=== PATIENT | female | born 1945 | race Caucasian/White ===

== ENCOUNTER 2019-12-12 09:57 | Outpatient (REF) | payer MEDICARE, MEDICAID, SELFPAY ==
[2019-12-12 11:00] LABS: MANUAL DIFF FLAG NO
[2019-12-12 11:08] LABS: Basophils Absolute Auto 0.1 X10*3/uL (0.0-0.2); Basophils Percent Auto 0.6 % (0-2); Eosinophils Absolute Auto 0.2 X10*3/uL (0.0-0.4); Eosinophils Percent Auto 1.5 % (0-4); Hematocrit 38.2 % (37-47); Hemoglobin 12.2 g/dl (12.0-16.0); Imm Gran Abs Auto 0.14 X10*3/uL (0.00-0.03); Imm Gran Pct Auto 1.4 % (0.0-0.4); Lymphocytes Absolute Auto 2.3 X10*3/uL (1.2-4.9); Lymphocytes Percent Auto 23.2 % (20-40); Mean Corpuscular HGB Conc 31.9 g/dl (31.0-35.0); Mean Corpuscular Hemoglobin 27.4 pg (27.0-33.0); Mean Corpuscular Volume 85.8 fL (80-98); Monocytes Absolute Auto 0.6 X10*3/uL (0.1-1.2); Monocytes Percent Auto 5.6 % (2-11); Neutrophils Absolute Auto 6.8 X10*3/uL (2.0-8.3); Neutrophils Percent Auto 67.7 % (45-73); Platelet Count 357 X10*3/uL (160-400); Red Blood Count 4.45 X10*6/uL (4.20-5.50); Red Cell Distribution Width 13.1 % (11.0-16.0)
[2019-12-12 11:31] LABS: Estimated Average Glucose 160 mg/dL; Hemoglobin A1c % 7.2 %
[2019-12-12 11:53] LABS: Creatinine Urine 101.58 mg/dL; Microalbum/Creatinine Ratio Ur 67.9 ug/mg cr
[2019-12-12 11:54] LABS: Alanine Aminotransferase 13 U/L (0-31); Albumin Level 4.5 g/dL (3.5-5.0); Alkaline Phosphatase 55 U/L (39-117); Anion Gap 14 (12-20); Aspartate Amino Transferase 15 U/L (5-31); Bilirubin Total 0.3 mg/dL (0.0-1.0); Blood Urea Nitrogen 21 mg/dL (9-16); Calcium 9.5 mg/dL (8.4-10.2); Carbon Dioxide 27 mmol/L (22-29); Chloride 103 mmol/L (96-108); Estimated Glomerular Filt Rate > 60; Glucose Random 154 mg/dL (60-115); Potassium 4.5 mmol/l (3.3-5.1); Sodium 139 mmol/L (135-145); Total Protein 7.4 g/dL (6.5-8.0)
== END 2019-12-12 09:58 | disposition home or self-care (01) ==
LOC: HO.LAB 09:57
PROVIDERS: PCP Internal Medicine; Visit Provider Internal Medicine
DX: E11.9 Type 2 diabetes mellitus without complications (principal); E03.8 Other specified hypothyroidism; E78.00 Pure hypercholesterolemia, unspecified; I10 Essential (primary) hypertension
CPT/HCPCS: 36415; 80053; 82043; 83036; 85025

== ENCOUNTER 2020-03-15 10:19 | Outpatient (REF) | payer MEDICARE, MEDICAID, SELFPAY ==
[2020-03-15 11:10] LABS: Estimated Average Glucose 180 mg/dL; Hemoglobin A1c % 7.9 %
[2020-03-15 11:11] LABS: Alanine Aminotransferase 14 U/L (0-31); Albumin Level 4.5 g/dL (3.5-5.0); Alkaline Phosphatase 57 U/L (39-117); Anion Gap 15 (12-20); Aspartate Amino Transferase 15 U/L (5-31); Bilirubin Total 0.4 mg/dL (0.0-1.0); Blood Urea Nitrogen 24 mg/dL (9-16); Calcium 9.1 mg/dL (8.4-10.2); Carbon Dioxide 27 mmol/L (22-29); Chloride 103 mmol/L (96-108); Cholesterol 180 mg/dL; Estimated Glomerular Filt Rate > 60; Glucose Random 192 mg/dL (60-115); HDL Cholesterol 44 mg/dL; LDL Cholesterol Calculated 109 mg/dl; Potassium 4.3 mmol/l (3.3-5.1); Sodium 141 mmol/L (135-145); Total Protein 7.6 g/dL (6.5-8.0); Triglycerides 139 mg/dL
[2020-03-15 11:32] LABS: Thyroid Stimulating Hormone 1.24 uIU/mL (0.32-4.0)
== END 2020-03-15 10:20 | disposition home or self-care (01) ==
LOC: HO.LAB 10:19
PROVIDERS: PCP Internal Medicine; Visit Provider Internal Medicine
DX: R80.0 Isolated proteinuria (principal); E11.9 Type 2 diabetes mellitus without complications; E03.8 Other specified hypothyroidism; E78.00 Pure hypercholesterolemia, unspecified
CPT/HCPCS: 36415; 80053; 80061; 83036; 84443

== ENCOUNTER 2020-06-14 09:14 | Outpatient (REF) | payer MEDICARE, MEDICAID, SELFPAY ==
[2020-06-14 10:03] LABS: Estimated Average Glucose 169 mg/dL; Hemoglobin A1c % 7.5 %
[2020-06-14 10:24] LABS: Alanine Aminotransferase 13 U/L (0-31); Albumin Level 4.4 g/dL (3.5-5.0); Alkaline Phosphatase 56 U/L (39-117); Anion Gap 12 (12-20); Aspartate Amino Transferase 15 U/L (5-31); Bilirubin Total 0.3 mg/dL (0.0-1.0); Blood Urea Nitrogen 25 mg/dL (9-16); Calcium 9.5 mg/dL (8.4-10.2); Carbon Dioxide 29 mmol/L (22-29); Chloride 103 mmol/L (96-108); Estimated Glomerular Filt Rate > 60; Glucose Random 197 mg/dL (60-115); Potassium 4.6 mmol/L (3.3-5.1); Sodium 139 mmol/L (135-145); Total Protein 7.3 g/dL (6.5-8.0)
== END 2020-06-14 09:15 | disposition home or self-care (01) ==
LOC: HO.LAB 09:14
PROVIDERS: PCP Internal Medicine; Visit Provider Internal Medicine
DX: E03.8 Other specified hypothyroidism (principal); E11.9 Type 2 diabetes mellitus without complications; E78.00 Pure hypercholesterolemia, unspecified
CPT/HCPCS: 36415; 80053; 83036

== ENCOUNTER 2020-09-11 08:49 | Outpatient (REF) | payer MEDICARE, SELFPAY ==
[2020-09-11 10:09] LABS: MANUAL DIFF FLAG NO
[2020-09-11 10:20] LABS: Basophils Absolute Auto 0.1 X10*3/uL (0.0-0.2); Basophils Percent Auto 0.6 % (0-2); Eosinophils Absolute Auto 0.2 X10*3/uL (0.0-0.4); Eosinophils Percent Auto 1.8 % (0-4); Hematocrit 37.7 % (37-47); Hemoglobin 11.9 g/dl (12.0-16.0); Imm Gran Abs Auto 0.14 X10*3/uL (0.00-0.03); Imm Gran Pct Auto 1.4 % (0.0-0.4); Lymphocytes Absolute Auto 2.9 X10*3/uL (1.2-4.9); Lymphocytes Percent Auto 28.6 % (20-40); Mean Corpuscular HGB Conc 31.6 g/dl (31.0-35.0); Mean Corpuscular Hemoglobin 27.2 pg (27.0-33.0); Mean Corpuscular Volume 86.1 fL (80-98); Mean Platelet Volume 10.3 fL (9.4-12.3); Monocytes Absolute Auto 0.6 X10*3/uL (0.1-1.2); Monocytes Percent Auto 5.5 % (2-11); Neutrophils Absolute Auto 6.4 X10*3/uL (2.0-8.3); Neutrophils Percent Auto 62.1 % (45-73); Platelet Count 343 X10*3/uL (160-400); Red Blood Count 4.38 X10*6/uL (4.20-5.50); Red Cell Distribution Width 12.9 % (11.0-16.0); White Blood Count 10.2 X10*3/uL (4.8-10.8)
[2020-09-11 10:29] LABS: Estimated Average Glucose 177 mg/dL; Hemoglobin A1c % 7.8 %
[2020-09-11 10:48] LABS: Microalbum/Creatinine Ratio Ur 63.4 ug/mg cr
[2020-09-11 10:59] LABS: Thyroid Stimulating Hormone 0.78 uIU/mL (0.32-4.0)
[2020-09-11 11:01] LABS: Alanine Aminotransferase 11 U/L (0-31); Albumin Level 4.4 g/dL (3.5-5.0); Alkaline Phosphatase 55 U/L (39-117); Anion Gap 15 (12-20); Aspartate Amino Transferase 15 U/L (5-31); Bilirubin Total 0.5 mg/dL (0.0-1.0); Blood Urea Nitrogen 19 mg/dL (9-16); Calcium 9.4 mg/dL (8.4-10.2); Carbon Dioxide 24 mmol/L (22-29); Chloride 104 mmol/L (96-108); Cholesterol 156 mg/dL; Estimated Glomerular Filt Rate > 60; Glucose Random 158 mg/dL (60-115); HDL Cholesterol 45 mg/dL; LDL Cholesterol Calculated 82 mg/dl; Potassium 4.4 mmol/L (3.3-5.1); Sodium 139 mmol/L (135-145); Total Protein 7.4 g/dL (6.5-8.0); Triglycerides 145 mg/dL
== END 2020-09-11 08:50 | disposition home or self-care (01) ==
LOC: HO.LAB 08:49
PROVIDERS: PCP Internal Medicine; Visit Provider Internal Medicine
DX: E03.9 Hypothyroidism, unspecified (principal); E11.9 Type 2 diabetes mellitus without complications; E78.00 Pure hypercholesterolemia, unspecified; I10 Essential (primary) hypertension
CPT/HCPCS: 36415; 80053; 80061; 82043; 83036; 84443; 85025

== ENCOUNTER 2020-12-27 08:51 | Outpatient (REF) | payer MEDICARE, SELFPAY ==
[2020-12-27 09:24] LABS: Estimated Average Glucose 192 mg/dL; Hemoglobin A1c % 8.3 %
[2020-12-27 09:45] LABS: Alanine Aminotransferase 12 U/L (0-31); Albumin Level 4.4 g/dL (3.5-5.0); Alkaline Phosphatase 55 U/L (39-117); Anion Gap 14 (12-20); Aspartate Amino Transferase 18 U/L (5-31); Bilirubin Total 0.3 mg/dL (0.0-1.0); Blood Urea Nitrogen 22 mg/dL (9-16); Calcium 9.4 mg/dL (8.4-10.2); Carbon Dioxide 24 mmol/L (22-29); Chloride 105 mmol/L (96-108); Estimated Glomerular Filt Rate > 60; Glucose Random 193 mg/dL (60-115); Potassium 4.4 mmol/L (3.3-5.1); Sodium 139 mmol/L (135-145); Total Protein 7.3 g/dL (6.5-8.0)
== END 2020-12-27 08:52 | disposition home or self-care (01) ==
LOC: HO.LAB 08:51
PROVIDERS: PCP Internal Medicine; Visit Provider Internal Medicine
DX: Z00.01 Encounter for general adult medical examination with abnormal findings (principal); E03.9 Hypothyroidism, unspecified; E11.9 Type 2 diabetes mellitus without complications; E78.00 Pure hypercholesterolemia, unspecified; I10 Essential (primary) hypertension
CPT/HCPCS: 36415; 80053; 83036

== ENCOUNTER 2021-03-29 08:58 | Outpatient (REF) | payer MEDICARE, SELFPAY ==
[2021-03-29 09:56] LABS: Estimated Average Glucose 157 mg/dL; Hemoglobin A1c % 7.1 %
[2021-03-29 10:12] LABS: Alanine Aminotransferase 11 U/L (0-31); Albumin Level 4.3 g/dL (3.5-5.0); Alkaline Phosphatase 53 U/L (39-117); Anion Gap 15 (12-20); Aspartate Amino Transferase 15 U/L (5-31); Bilirubin Total < 0.2 mg/dL (0.0-1.0); Blood Urea Nitrogen 29 mg/dL (9-16); Calcium 9.7 mg/dL (8.4-10.2); Carbon Dioxide 27 mmol/L (22-29); Chloride 104 mmol/L (96-108); Estimated Glomerular Filt Rate > 60; Glucose Random 178 mg/dL (60-115); Potassium 4.6 mmol/L (3.3-5.1); Sodium 141 mmol/L (135-145); Total Protein 7.4 g/dL (6.5-8.0)
[2021-03-29 10:28] LABS: Thyroid Stimulating Hormone 1.04 uIU/mL (0.32-4.0)
== END 2021-03-29 08:59 | disposition home or self-care (01) ==
LOC: HO.LAB 08:58
PROVIDERS: PCP Internal Medicine; Visit Provider Internal Medicine
DX: E03.9 Hypothyroidism, unspecified (principal); E11.9 Type 2 diabetes mellitus without complications; E78.00 Pure hypercholesterolemia, unspecified; I10 Essential (primary) hypertension
CPT/HCPCS: 36415; 80053; 83036; 84443

== ENCOUNTER → 2021-07-23 09:33 | Outpatient (BNVA) | payer OTHER, SELFPAY | PROVIDERS: PCP Internal Medicine; Visit Provider Internal Medicine Pulmonary Disease | DX: J45.909 Unspecified asthma, uncomplicated (principal) | CPT/HCPCS: 99202 ==

== ENCOUNTER 2021-07-31 10:42 | Outpatient (REF) | payer OTHER, SELFPAY ==
--- NOTE | ~2021-07-31 | MM_ITS ---
EXAMINATION: BONE DENSITOMETRY CLINICAL INDICATION: Menopause. COMPARISON: Previous BD dated 06/13/2014 and baseline BD dated 05/28/2006. TECHNIQUE: Using a [employer] DXA System (software version: 13.1) manufactured by [employer], dual-energy x-ray absorptiometry was performed of the lumbar spine and left hip. The images are of good technical quality. Summary results are attached. FINDINGS: AP SPINE L1-L4: Current: BMD 0.925 g/cm2, Z-score -0.4, T-score -2.1, osteopenia, 4.8% increase from previous, 13.4% increase from baseline (<5% change is not significant). Prior: BMD 0.883 g/cm2. Baseline: BMD 0.816 g/cm2. LEFT FEMUR, NECK: Current: BMD 0.886 g/cm2, Z-score 0.8, T-score -1.1, osteopenia. Prior: BMD 0.905 g/cm2. Baseline: BMD 0.830 g/cm2. LEFT FEMUR, TOTAL: Current: BMD 1.007 g/cm2, Z-score 1.7, T-score 0.0, normal, 5.5% decrease from previous, 0.2% decrease from baseline (<5% change is not significant). Prior: BMD 1.066 g/cm2. Baseline: BMD 1.009 g/cm2. IDENTIFIED RISK FACTORS: Early menopause, height loss, hysterectomy, osteoporosis, secondary osteoporosis. HISTORY OF FRACTURE: None listed. MEDICATIONS: Calcium, vitamin D. MM/XR DEXA axial skeleton IMPRESSION: 1. DIAGNOSIS: Osteopenia based on the lowest T-score value of -2.1 in the lumbar spine applying World Health Organization criteria. 2. 10-YEAR FRACTURE RISK PREDICTION, FRAX: Major osteoporotic fracture (clinical spine, forearm, hip or shoulder) 5.4%. Hip fracture 0.8%. 3. Treatment Recommendations: NOF guidelines recommend consideration for treatment in postmenopausal women and men age 50 and older presenting with the following: -A hip or vertebral (clinical or morphometric) fracture. -T-score less than or equal to -2.5 at the femoral neck or spine after appropriate evaluation to exclude secondary causes. -Low bone mass at the hip or spine and a 10-year fracture probability by FRAX of greater than or equal to 3% for hip fracture or greater than or equal to 20% for major osteoporotic fracture based on the [place] adapted WHO algorithm. 4. Other Recommendations: All treatment decisions require clinical judgment and consideration of individual patient factors, including patient preferences, comorbidities, previous drug use, risk factors not captured in the FRAX model (e.g. frailty, falls, vitamin D deficiency, increased bone turnover, interval significant decline in bone density) and possible under or overestimation of fracture risk by FRAX. Additional medical evaluation for secondary cause of low bone mineral density may be appropriate. FUTURE SCAN RECOMMENDATION: People with diagnosed cases of osteoporosis or at high risk for fracture should have regular bone mineral density tests. For patients eligible for Medicare, routine testing is allowed once every 2 years. The testing frequency can be increased to one year for patients who have rapidly progressing disease, those who are receiving or discontinuing medical therapy to restore bone mass, or have additional risk factors.
--- NOTE | ~2021-07-31 | MM_ITS ---
EXAMINATION: MM SCREENING DIGITAL BREAST TOMOSYNTHESIS, BILATERAL CLINICAL INFORMATION: Screening. Asymptomatic. The lifetime risk of breast cancer based on the Tyrer-Cuzick Model is 2%. COMPARISON: Mammography: 07/26/2018, 05/18/2017, 03/17/2016 TECHNIQUE: Digital breast tomosynthesis is performed in both the craniocaudal and mediolateral oblique views along with computer-aided detection (CAD). Synthesized 2D images are generated from the tomosynthesis. FINDINGS: The breasts are almost entirely fatty (ACR BI-RADS breast composition Category a). There are no significant masses, abnormal calcifications, or other abnormalities. Background stromal markings are stable. No developing density. The axilla are unremarkable. No significant changes. MM/MM tomosynthesis screening BI IMPRESSION: No mammographic evidence of malignancy. ASSESSMENT: BI-RADS 1: Negative RECOMMENDATION: Routine annual mammography screening. This patient's information was entered into a reminder system with a target due date for their next mammogram.
== END 2021-07-31 10:43 | disposition home or self-care (01) ==
LOC: HO.MAMMO 10:42
PROVIDERS: PCP Internal Medicine; Visit Provider Internal Medicine
DX: Z12.31 Encounter for screening mammogram for malignant neoplasm of breast (principal); Z13.820 Encounter for screening for osteoporosis; Z78.0 Asymptomatic menopausal state; M85.80 Other specified disorders of bone density and structure, unspecified site
CPT/HCPCS: 77063; 77067; 77080

== ENCOUNTER 2021-10-17 08:58 | Outpatient (REF) | payer OTHER, SELFPAY ==
[2021-10-17 10:08] LABS: Alanine Aminotransferase 9 U/L (0-31); Albumin Level 4.4 g/dL (3.5-5.0); Alkaline Phosphatase 62 U/L (39-117); Anion Gap 16 (12-20); Aspartate Amino Transferase 15 U/L (5-31); Bilirubin Total 0.2 mg/dL (0.0-1.0); Blood Urea Nitrogen 20 mg/dL (9-16); Calcium 9.4 mg/dL (8.4-10.2); Carbon Dioxide 25 mmol/L (22-29); Chloride 105 mmol/L (96-108); Cholesterol 184 mg/dL; Estimated Glomerular Filt Rate > 60; Glucose Fasting 156 mg/dL (60-99); HDL Cholesterol 42 mg/dL; LDL Cholesterol Calculated 105 mg/dl; Potassium 4.7 mmol/L (3.3-5.1); Sodium 141 mmol/L (135-145); Total Protein 7.3 g/dL (6.5-8.0); Triglycerides 186 mg/dL
[2021-10-17 10:32] LABS: Free T4 (Free Thyroxine) 1.32 ng/dL (0.71-1.85); Thyroid Stimulating Hormone 0.83 uIU/mL (0.32-4.0); Vitamin D 25-OH Total 27.1 ng/mL (>30)
[2021-10-17 11:12] LABS: Microalbum/Creatinine Ratio Ur 101.1 ug/mg cr
[2021-10-19 06:26] LABS: Thyroglobulin Antibodies <1 IU/mL (< or = 1); Thyroid Peroxidase Antibodies 1 IU/mL (<9)
== END 2021-10-17 08:59 | disposition home or self-care (01) ==
LOC: HO.LAB 08:58
PROVIDERS: PCP Internal Medicine; Visit Provider Internal Medicine
DX: E11.9 Type 2 diabetes mellitus without complications (principal); R80.9 Proteinuria, unspecified; E03.9 Hypothyroidism, unspecified; E78.00 Pure hypercholesterolemia, unspecified; E78.5 Hyperlipidemia, unspecified; E55.9 Vitamin D deficiency, unspecified
CPT/HCPCS: 36415; 80053; 80061; 82043; 82306; 84439; 84443; 86376; 86800

== ENCOUNTER 2021-11-20 09:55 | Outpatient (REF) | payer OTHER, SELFPAY ==
--- NOTE | 2021-11-20 10:54 | PFT_ITS ---
Forced vital capacity 74% and FEV1 also 74%, FEV1/FVC ratio 74. [id number] is 65% and MVV 66%. Post bronchodilator therapy, there is no significant change. Total lung capacity 81%. Residual volume 85%. Diffusion capacity 96%. CONCLUSION: Possible mild obstructive airway disorder involving the smaller airways. Clinical correlation is recommended. MD EDILBERTO Calvo/MILEY / [id number]
== END 2021-11-20 09:56 | disposition home or self-care (01) ==
LOC: HO.RESP 09:55
PROVIDERS: PCP Internal Medicine; Visit Provider Internal Medicine Pulmonary Disease
DX: J45.40 Moderate persistent asthma, uncomplicated (principal)
CPT/HCPCS: 94060; 94727; 94729; 99212

== ENCOUNTER → 2022-04-21 13:29 | Outpatient (BNVA) | payer OTHER, SELFPAY | PROVIDERS: PCP Internal Medicine; Referring Provider Internal Medicine; Visit Provider Nurse Practitioner Family | DX: Z12.11 Encounter for screening for malignant neoplasm of colon (principal); R19.5 Other fecal abnormalities | CPT/HCPCS: 99202 ==

== ENCOUNTER → 2022-05-15 09:47 | Outpatient (BNVA) | payer OTHER, SELFPAY | PROVIDERS: PCP Internal Medicine; Visit Provider Internal Medicine Pulmonary Disease | DX: J45.40 Moderate persistent asthma, uncomplicated (principal); Z79.899 Other long term (current) drug therapy | CPT/HCPCS: 99212 ==

== ENCOUNTER 2022-06-27 09:39 | Outpatient (REF) | payer OTHER, SELFPAY ==
[2022-06-27 11:42] LABS: Alanine Aminotransferase 12 U/L (0-31); Albumin Level 4.3 g/dL (3.5-5.0); Alkaline Phosphatase 61 U/L (39-117); Anion Gap 14 (12-20); Aspartate Amino Transferase 16 U/L (5-31); Bilirubin Total 0.3 mg/dL (0.0-1.0); Blood Urea Nitrogen 25 mg/dL (9-16); Calcium 9.3 mg/dL (8.4-10.2); Carbon Dioxide 26 mmol/L (22-29); Chloride 106 mmol/L (96-108); Cholesterol 194 mg/dL; Estimated Glomerular Filt Rate > 60; Glucose Fasting 207 mg/dL (60-99); HDL Cholesterol 42 mg/dL; LDL Cholesterol Calculated 116 mg/dl; Potassium 4.7 mmol/L (3.3-5.1); Sodium 141 mmol/L (135-145); Total Protein 6.9 g/dL (6.5-8.0); Triglycerides 183 mg/dL
[2022-06-27 11:58] LABS: Thyroid Stimulating Hormone 1.85 uIU/mL (0.32-4.0); Vitamin D 25-OH Total 29.5 ng/mL (>30)
[2022-06-27 13:16] LABS: Microalbum/Creatinine Ratio Ur 121.5 ug/mg cr
== END 2022-06-27 09:40 | disposition home or self-care (01) ==
LOC: HO.LAB 09:39
PROVIDERS: PCP Internal Medicine; Visit Provider Internal Medicine
DX: E55.9 Vitamin D deficiency, unspecified (principal); E03.9 Hypothyroidism, unspecified; E11.9 Type 2 diabetes mellitus without complications; E78.5 Hyperlipidemia, unspecified
CPT/HCPCS: 36415; 80053; 80061; 82043; 82306; 84443

== ENCOUNTER 2022-08-28 08:47 | Outpatient (REF) | payer OTHER, SELFPAY ==
--- NOTE | ~2022-08-28 | MM_ITS ---
EXAMINATION: MM SCREENING DIGITAL BREAST TOMOSYNTHESIS, BILATERAL CLINICAL INFORMATION: Screening. Asymptomatic. The lifetime risk of breast cancer based on the Tyrer-Cuzick Model is 2%. COMPARISON: Mammography: 07/31/2021, 07/26/2018, 05/18/2017 TECHNIQUE: Digital breast tomosynthesis is performed in both the craniocaudal and mediolateral oblique views along with computer-aided detection (CAD). Synthesized 2D images are generated from the tomosynthesis. FINDINGS: The breasts are almost entirely fatty (ACR BI-RADS breast composition Category a). Background stromal markings are normal and there is no developing density or architectural abnormality. There are no significant masses, abnormal calcifications, or other abnormalities. The axilla and skin contours are unremarkable. No significant changes from prior studies. MM/MM tomosynthesis screening BI IMPRESSION: No mammographic evidence of malignancy. ASSESSMENT: BI-RADS 1: Negative RECOMMENDATION: Routine annual mammography screening. This patient's information was entered into a reminder system with a target due date for their next mammogram.
== END 2022-08-28 08:48 | disposition home or self-care (01) ==
LOC: HO.MAMMO 08:47
PROVIDERS: PCP Internal Medicine; Visit Provider Internal Medicine
DX: Z12.31 Encounter for screening mammogram for malignant neoplasm of breast (principal)
CPT/HCPCS: 77063; 77067

== ENCOUNTER 2022-10-30 08:34 | Outpatient (REF) | payer OTHER, SELFPAY ==
[2022-10-30 10:55] LABS: Alanine Aminotransferase 10 U/L (0-31); Albumin Level 4.2 g/dL (3.5-5.0); Alkaline Phosphatase 46 U/L (39-117); Anion Gap 13 (12-20); Aspartate Amino Transferase 16 U/L (5-31); Bilirubin Total 0.2 mg/dL (0.0-1.0); Blood Urea Nitrogen 26 mg/dL (9-16); Calcium 9.5 mg/dL (8.4-10.2); Carbon Dioxide 26 mmol/L (22-29); Chloride 106 mmol/L (96-108); Cholesterol 123 mg/dL (<200); Estimated Glomerular Filt Rate 57; Glucose Fasting 108 mg/dL (60-99); HDL Cholesterol 39 mg/dL (>40); LDL Cholesterol Calculated 56 mg/dL (<100); Potassium 4.1 mmol/L (3.3-5.1); Sodium 141 mmol/L (135-145); Total Protein 7.4 g/dL (6.5-8.0); Triglycerides 140 mg/dL (<150)
[2022-10-30 10:57] LABS: Thyroid Stimulating Hormone 1.22 uIU/mL (0.32-4.0); Vitamin D 25-OH Total 29.2 ng/mL (>30)
[2022-10-30 11:39] LABS: Creatinine Urine 183.64 mg/dL; Microalbum/Creatinine Ratio Ur 40.2 ug/mg cr (<30)
== END 2022-10-30 08:35 | disposition home or self-care (01) ==
LOC: HO.LAB 08:34
PROVIDERS: PCP Internal Medicine; Visit Provider Internal Medicine
DX: E55.9 Vitamin D deficiency, unspecified (principal); E03.9 Hypothyroidism, unspecified; E11.9 Type 2 diabetes mellitus without complications; E78.5 Hyperlipidemia, unspecified
CPT/HCPCS: 36415; 80053; 80061; 82043; 82306; 84443

== ENCOUNTER 2022-11-04 08:46 | Outpatient (AMB) | payer OTHER, SELFPAY ==
--- NOTE | 2022-11-04 09:01 | A.OFFPC_ITS ---
Vital Signs 11/04/22 09:03 Height 4 ft 9 in Weight 147 lb BMI 31.8 BP 130/68 Blood Pressure Location Lt brachial Position Sitting Intake Visit Reasons: dm Intake Note: Patient here for a follow up DM Photograph Editor Required: No Accompanied by: Self / Same As Patient Allergies No Known Allergies [No Known Allergies*] Allergy (Verified 11/04/22 09:26) Medication List - Last Reconciled 11/04/22 by Silvia Hernadez MD acetaminophen 500 mg PO TID PRN 30 days albuterol sulfate 90 mcg/actuation 2 puffs PO QID PRN aspirin 81 mg PO DAILY 90 days blood sugar diagnostic (FreeStyle Lite Strips) As directed blood-glucose meter (FreeStyle Lite Meter kit) As directed calcium carbonate-vitamin D3 600 mg-5 mcg (200 unit) (Calcium 600 + D(3)) 1 tab PO BID 90 days docusate sodium 100 mg PO BEDTIME fluticasone furoate 200 mcg/actuation (Arnuity Ellipta) 1 inh inhalation DAILY glipizide ER 10 mg PO DAILY 90 days lancets (FreeStyle Lancets) As directed levothyroxine 75 mcg PO DAILY 90 days lisinopril-hydrochlorothiazide 20-25 mg 1 tab PO DAILY 90 days metformin 1,000 mg PO BID 90 days simvastatin 40 mg PO BEDTIME 90 days Tobacco use date assessed: 07/03/22 Fall risk assessment: No Falls in past year Last assessed Fall Risk: 11/04/22 Dental Screening Dental Screen Date: 11/04/22 Did you have a dental visit in the last 12 months?: No Did you have a dental problem in the last 6 months where you did not have access to dental care?: No Was dental information given to patient?: Patient has dentist HPI HPI Comments History of Present Illness Details This is a 77-year-old female with diabetes mellitus type 2, hypothyroidism, hypertension and pure hypercholesterolemia that comes today for follow-up on her conditions. A1c slightly elevated and I will add Tradjenta. TSH normal. Blood pressure within goal. LDL within goal. No chest pain or shortness of breath. Compliant with medications. Had positive Cologuard and was evaluated by Gastroenterology which said that she can wait for colonoscopy. [facility] Medical History Class 1 obesity with body mass index (BMI) of 31.0 to 31.9 in adult Diabetes mellitus Essential hypertension Hypothyroidism Microalbuminuria Moderate persistent asthma Postmenopausal Pure hypercholesterolemia Surgical History H/O colonoscopy No pertinent past surgical history Family History Mother No problems noted. Father No problems noted. Social History Housing: House Alcohol intake: never Patient Tobacco Use Status: Former Tobacco user Tobacco use type: Cigarette e-Cigarette/Vaping Use: Never Used Second Hand Smoke Exposure: No service: No Current occupational status: disabled Cognitive needs: No Hearing needs: No Vision needs: Yes Questionnaire Thrive Questionnaire Date Thrive assessed: 07/03/22 CHALRES-7 AMB Questionnaire CHARLES-7 Date CHARLES - 7 assessed: 07/03/22 Source: Developed by Drs. Jem Cervantes, Aga Najera, Steven Johntson and colleagues, with an educational rojelio from [employer]. Review of Systems Const All systems reviewed & are unremarkable except as noted in HPI and below Eyes Reports no additional complaints, Denies change in vision and Denies other visual disturbances Card Denies chest pain at rest, Denies chest pain with activity, Denies edema, Denies irregular heart rhythm, Denies claudication, Denies dyspnea, Denies dyspnea on exertion, Denies orthopnea, Denies paroxysmal nocturnal dyspnea and Denies slow heart rate Resp Denies cough, Denies dyspnea and Denies dyspnea on exertion GI Denies abdominal pain, Denies change in bowel habits, Denies excessive flatus, Denies nausea and Denies vomiting Denies urinary incontinence, Denies urinary hesitancy and Denies urinary urgency Musc Denies abnormal gait, Denies atrophy, Denies deformity and Denies limited range of motion Skin/Breast Denies bleeding lesions, Denies changing lesions and Denies rash Neuro Denies abnormal gait and Denies lack of coordination Physical exam (Primary Care) Vital Signs: Last Vital Signs BP 130/68 11/04/22 09:03 BMI result Body Mass Index 31.8 Tobacco/Smoking Status: Tobacco use Status Tobacco use date assessed 07/03/22 11/04/22 09:04 Patient Tobacco Use Status Former Tobacco user 11/04/22 09:04 Tobacco use type Cigarette 11/04/22 09:04 e-Cigarette/Vaping Use Never Used 11/04/22 09:04 Thrive Assessment: Date of Thrive Assessment Date Thrive assessed 07/03/22 11/04/22 09:04 Eyes General: appearance normal, both eyes and all related structures Eyelids: Yes eyelids normal Conjunctivae: conjunctivae normal Neck Neck: Yes normal visual inspection and Yes supple Resp Effort & Inspection: normal respiratory effort Auscultation: clear to auscultation bilaterally Cardio Jugular venous distension: no JVD Rate: regular rate Rhythm: regular rhythm Heart sounds: S1 normal heart sound present and S2 normal heart sound present Extrem General: Yes full ROM Results AMB Hemoglobin A1c AMB Hemoglobin A1c 7.5 % Last Edit by GRAY Wilson on 11/04/22 09:1 8 Results Reviewed Results Reviewed: Laboratory Last Values Hgb A1c (Clinic) 7.5 % (4.0-6.0) H 11/04/22 09:04 Assessment and Plan Assessment & Plan (1) Diabetes mellitus: Code(s): E11.9 - Type 2 diabetes mellitus without complications Plan: Continue glipizide and metformin. Start Tradjenta. A1c goal is equal or less than 7%. (2) Hypothyroidism: Code(s): E03.9 - Hypothyroidism, unspecified Plan: Continue levothyroxine. Monitor TSH. (3) Essential hypertension: Code(s): I10 - Essential (primary) hypertension Plan: Continue lisinopril-hydrochlorothiazide. Blood pressure goal is equal or less than 130/80. (4) Pure hypercholesterolemia: Code(s): E78.00 - Pure hypercholesterolemia, unspecified Plan: Continue statins. LDL goal is less than 70. Orders: Orders Lipid Panel 4 Months E78.5 - Hyperlipidemia, unspecified Microalbumin, Random (w Creat) 4 Months E11.9 - Type 2 diabetes mellitus without complications Vitamin D 25-OH Total 4 Months E55.9 - Vitamin D deficiency, unspecified Thyroid Stimulating Hormone 4 Months E03.9 - Hypothyroidism, unspecified Comprehensive [place]. Panel Fast 4 Months E11.9 - Type 2 diabetes mellitus without complications AMB Hemoglobin A1c Today E11.9 - Type 2 diabetes mellitus without complications Medications: New linagliptin (Tradjenta) 5 mg PO DAILY 90 tabs 0RF 90 days E11.9 - Type 2 diabetes mellitus without complications Coding Level of Care Code Est Pt Level 4 (34068) Diagnoses Diabetes mellitus E11.9 Hypothyroidism E03.9 Essential hypertension I10 Pure hypercholesterolemia E78.00 Time Spent (min) 23
[2022-11-04 09:03] VITALS: BP 130/68; BMI 31.8
== END 2022-11-04 09:49 | disposition home or self-care (01) ==
PROVIDERS: Visit Provider Internal Medicine
DX: E11.9 Type 2 diabetes mellitus without complications (principal); E03.9 Hypothyroidism, unspecified; I10 Essential (primary) hypertension; E78.00 Pure hypercholesterolemia, unspecified
CPT/HCPCS: 83036; 99214

== ENCOUNTER 2023-07-21 08:22 | Outpatient (AMB) | payer OTHER, SELFPAY ==
[2023-07-21 08:27] VITALS: BP 132/60; BMI 31.6
--- NOTE | 2023-07-21 08:27 | A.OFFPC_ITS ---
Vital Signs 07/21/23 08:27 Height 4 ft 9 in Weight 146 lb BMI 31.6 BP 132/60 Blood Pressure Location Lt brachial Position Sitting Intake Visit Reasons: Physical exam, annual Intake Note: Patient here for an annual physical exam Transportation Analyst Required: No Accompanied by: Family/Other Allergies No Known Allergies [No Known Allergies*] Allergy (Verified 07/21/23 08:41) Medication List - Last Reconciled 07/21/23 by Silvia Hernadez MD acetaminophen 500 mg PO TID PRN 30 days aspirin 81 mg PO DAILY 90 days blood sugar diagnostic (FreeStyle Lite Strips) As directed blood-glucose meter (FreeStyle Lite Meter kit) As directed calcium carbonate-vitamin D3 600 mg-5 mcg (200 unit) (Calcium 600 + D(3)) 1 tab PO BID 90 days docusate sodium 100 mg PO BEDTIME fluticasone furoate 200 mcg/actuation (Arnuity Ellipta) 1 inh inhalation DAILY glipizide ER 10 mg PO DAILY 90 days lancets (FreeStyle Lancets) As directed levothyroxine 75 mcg PO DAILY 90 days linagliptin (Tradjenta) 5 mg PO DAILY 90 days lisinopril-hydrochlorothiazide 20-25 mg 1 tab PO DAILY 90 days metformin 1,000 mg PO BID 90 days simvastatin 40 mg PO BEDTIME 90 days Ventolin HFA 90 mcg/actuation (albuterol sulfate) 2 puffs inhalation Q6H PRN 30 days NS Tobacco use date assessed: 07/21/23 Fall risk assessment: No Falls in past year Last assessed Fall Risk: 07/21/23 Dental Screening Dental Screen Date: 07/21/23 Did you have a dental visit in the last 12 months?: No Did you have a dental problem in the last 6 months where you did not have access to dental care?: No Was dental information given to patient?: Patient has dentist HPI HPI Comments History of Present Illness Details This is a 78-year-old female with diabetes mellitus type 2 that comes accompanied by the boyfriend of the granddaughter for her physical exam. A1c within goal. Has diabetic eye exam scheduled for 07/29/2023. Last mammogram was August 2022 and has an appointment for next month. Last bone density was 2021 and I order another bone density for this year. Had Cologuard positive and was seen by Gastroenterology but has not had an appointment yet for colonoscopy. I refer her through open access. Denies any chest pain or shortness of breath. Blood pressure stable. Labs were ordered. Patient complains of bilateral leg pain associated with weakness. The pain is burning like in quality. Most likely due to neuropathy and I will start her on gabapentin at bedtime. [facility] Medical History Postmenopausal Moderate persistent asthma Microalbuminuria Class 1 obesity with body mass index (BMI) of 31.0 to 31.9 in adult Hypothyroidism Pure hypercholesterolemia Diabetes mellitus Essential hypertension Surgical History H/O colonoscopy No pertinent past surgical history Family History Mother No problems noted. Father No problems noted. Social History Housing: House Alcohol intake: never Patient Tobacco Use Status: Former Tobacco user Tobacco use type: Cigarette e-Cigarette/Vaping Use: Never Used Second Hand Smoke Exposure: No service: No Current occupational status: disabled Cognitive needs: No Hearing needs: No Vision needs: Yes Questionnaire PHQ-9 Over the last 2 weeks, how often have you been bothered by any of the following problems? 1. Little interest or pleasure in doing things: not at all 2. Feeling down, depressed, or hopeless: not at all 3. Trouble falling or staying asleep, or sleeping too much: not at all 4. Feeling tired or having little energy: not at all 5. Poor appetite or overeating: not at all 6. Feeling bad about yourself - or that you are a failure or have let yourself or your family down: not at all 7. Trouble concentrating on things, such as reading the newspaper or watching television: not at all 8. Moving or speaking so slowly that other people could have noticed. Or the opposite - being so fidgety or restless that you have been moving around a lot more than usual: not at all 9. Thoughts that you would be better off or of hurting yourself in some way: not at all Total score: 0 Depression Screening Interpretation: Negative Depression Screening Done: Yes [id number] - PHQ-9 Billing: Yes Source: Developed by Drs. Jem Cervantes, Steven Musa and colleagues, with an educational rojelio from [employer]. Thrive Questionnaire Date Thrive assessed: 07/21/23 I am a: Patient What is your living situation today?: I have a steady place to live Within the past 12 months, did the food you bought not last and you didn't have the money to get more?: Never true Within the past 12 months, did you worry whether your food would run out before you got money to buy more?: Never true Do you have trouble paying for medicines?: No Do you have trouble getting transportation to medical appointments?: No Do you have trouble paying your heating and electricity bill?: No Do you have trouble taking care of your child, family member or friend?: No Do you have trouble with day-to-day activities such as bathing, preparing meals, shopping, managing finances, etc.?: No Are you currently unemployed and looking for a job?: No Are you interested in more education?: No Please select the resources that you would like help with: None Currently or been in a relationship where the following occur: no concerns reported THRIVE Score: 0 AUDIT C Alcohol Use Questionnaire (AUDIT-C) 1. How often do you have a drink containing alcohol?: Never Total Score: 0 Score Reviewed/Action Taken: No CHARLES-7 AMB Questionnaire CHARLES-7 Date CHARLES - 7 assessed: 07/21/23 Feeling nervous, anxious, or on edge: 0 = Not at all Not being able to stop or control worryin = Not at all Worrying too much about different things: 0 = Not at all Trouble relaxin = Not at all Being so restless that it is hard to sit still: 0 = Not at all Becoming easily annoyed or irritable: 0 = Not at all Feeling afraid as if something awful might happen: 0 = Not at all Total CHARLES-7 score (0-4 normal; 5-9 mild; 10-14 moderate; 15-21 severe): 0 Source: Developed by Aga Benitez Kurt Kroenke and colleagues, with an educational rojelio from [employer]. CHARLES-7 Assessment Billing CHARLES-7 Assessment Tool: CHARLES-7 Assessment 50638 Review of Systems Const All systems reviewed & are unremarkable except as noted in HPI and below Eyes Reports no additional complaints, Denies change in vision and Denies other visual disturbances Card Denies chest pain at rest, Denies chest pain with activity, Denies edema, Denies irregular heart rhythm, Denies claudication, Denies dyspnea, Denies dyspnea on exertion, Denies orthopnea, Denies paroxysmal nocturnal dyspnea and Denies slow heart rate Resp Denies cough, Denies dyspnea and Denies dyspnea on exertion Physical exam (Primary Care) Vital Signs: Last Vital Signs BP 132/60 07/21/23 08:27 BMI result Body Mass Index 31.6 Tobacco/Smoking Status: Tobacco use Status Tobacco use date assessed 07/21/23 07/21/23 08:36 Patient Tobacco Use Status Former Tobacco user 07/21/23 08:36 Tobacco use type Cigarette 07/21/23 08:36 e-Cigarette/Vaping Use Never Used 07/21/23 08:36 PHQ-9: PHQ-9 Score PHQ-9: Total score 0 07/21/23 08:52 Depression Screening Interpretation: Negative Thrive Assessment: Date of Thrive Assessment Date Thrive assessed 07/21/23 07/21/23 08:36 Currently or been in a relationship where the following occur: no concerns reported Const Orientation/consciousness: patient oriented x3 HENMT Head: Yes normal to inspection, Yes normocephalic and Yes atraumatic Ears: external ears normal Eyes General: appearance normal, both eyes and all related structures Eyelids: Yes eyelids normal Conjunctivae: conjunctivae normal Neck Neck: Yes normal visual inspection and Yes supple Resp Effort & Inspection: normal respiratory effort Auscultation: clear to auscultation bilaterally Cardio Jugular venous distension: no JVD Rate: regular rate Rhythm: regular rhythm Heart sounds: S1 normal heart sound present and S2 normal heart sound present GI Inspection: Yes normal to inspection Palpation (GI): Soft to palpation and nontender Auscultation: normal bowel sounds Skin General skin exam: no rashes or lesions noted Neuro General: patient oriented x3 and no focal motor deficits Extrem General: Yes full ROM Psych Appearance: grossly normal Results AMB Hemoglobin A1c AMB Hemoglobin A1c 6.6 % Last Edit by GRAY Wilson on 07/21/23 08:3 8 Results Reviewed Results Reviewed: Laboratory Last Values Hgb A1c (Clinic) 6.6 % (4.0-6.0) H 07/21/23 08:27 Assessment and Plan Assessment & Plan (1) Physical exam: Code(s): Z00.00 - Encounter for general adult medical examination without abnormal findings Plan: Repeat in a year. (2) Diabetes mellitus: Code(s): E11.9 - Type 2 diabetes mellitus without complications Qualifiers: Diabetes mellitus type: type 2 Diabetes mellitus manager terminal insulin use: without manager terminal use Diabetes mellitus complication status: without complication Qualified Code(s): E11.9 - Type 2 diabetes mellitus without complications Plan: Continue glipizide, Tradjenta and metformin. A1c goal is equal or less than 7%. Orders: Orders AMB Hemoglobin A1c Today E11.9 - Type 2 diabetes mellitus without complications XR DEXA axial skeleton Today N95.9 - Unspecified menopausal and perimenopausal disorder Lipid Panel Today E78.5 - Hyperlipidemia, unspecified Microalbumin, Random (w Creat) Today E11.9 - Type 2 diabetes mellitus without complications Thyroid Stimulating Hormone Today E03.9 - Hypothyroidism, unspecified Vitamin D 25-OH Total Today E55.9 - Vitamin D deficiency, unspecified Comprehensive [place]. Panel Fast Today E11.9 - Type 2 diabetes mellitus without complications Referrals Open Access Screening Colonoscopy Referral Z12.11 - Encounter for screening for malignant neoplasm of colon Coding Level of Care Code Est Pt Prev Care >65y(45339) Diagnoses Physical exam Z00.00 Type 2 diabetes mellitus without complication, without long-term current use of insulin E11.9 Diabetes mellitus type: type 2 Diabetes mellitus manager terminal insulin use: without manager terminal use Diabetes mellitus complication status: without complication Additional Codes CHARLES-7 Assessment Billing - CHARLES-7 Assessment Tool: CHARLES-7 Assessment 78338 ([id number]) Time Spent (min) 35
== END 2023-07-21 08:54 | disposition home or self-care (01) ==
PROVIDERS: PCP Internal Medicine; Visit Provider Internal Medicine
DX: Z00.00 Encounter for general adult medical examination without abnormal findings (principal); E11.9 Type 2 diabetes mellitus without complications
CPT/HCPCS: 83036; 99397

== ENCOUNTER 2023-09-03 08:34 | Outpatient (REF) | payer OTHER, SELFPAY ==
--- NOTE | ~2023-09-03 | MM_ITS ---
EXAMINATION: BONE DENSITOMETRY CLINICAL INDICATION: Unspecified menopausal and perimenopausal disorder. COMPARISON: Previous BD dated 07/31/2021 and baseline BD dated 05/28/2006. TECHNIQUE: Using a Razz DXA System (software version: 13.1) manufactured by [employer], dual-energy x-ray absorptiometry was performed of the lumbar spine and left hip. The images are of good technical quality. Summary results are attached. FINDINGS: LEFT FEMUR, NECK: Current: BMD 0.957 g/cm2, Z-score 1.4, T-score -0.6, normal. Prior: BMD 0.886 g/cm2. Baseline: BMD 0.830 g/cm2. LEFT FEMUR, TOTAL: Current: BMD 0.999 g/cm2, Z-score 1.7, T-score -0.1, normal, 0.8% decrease from previous, 1.0% decrease from baseline (<5% change is not significant). Prior: BMD 1.007 g/cm2. Baseline: BMD 1.009 g/cm2. AP SPINE L1-L4: Current: BMD 0.953 g/cm2, Z-score -0.2, T-score -1.9, osteopenia, 3.0% increase from previous, 16.8% increase from baseline (<5% change is not significant). Prior: BMD 0.925 g/cm2. Baseline: BMD 0.816 g/cm2. IDENTIFIED RISK FACTORS: Early menopause, secondary osteoporosis, hysterectomy, bilateral oophorectomy, anticonvulsant, height loss, osteoporosis. HISTORY OF FRACTURE: None listed. MEDICATIONS: Vitamin D. MM/XR DEXA axial skeleton IMPRESSION: 1. DIAGNOSIS: Osteopenia based on the lowest T-score value of -1.9 in the lumbar spine applying World Health Organization criteria. 2. 10-YEAR FRACTURE RISK PREDICTION, FRAX: Major osteoporotic fracture (clinical spine, forearm, hip or shoulder) 5.1%. Hip fracture 0.6%. 3. Treatment Recommendations: NOF guidelines recommend consideration for treatment in postmenopausal women and men age 50 and older presenting with the following: -A hip or vertebral (clinical or morphometric) fracture. -T-score less than or equal to -2.5 at the femoral neck or spine after appropriate evaluation to exclude secondary causes. -Low bone mass at the hip or spine and a 10-year fracture probability by FRAX of greater than or equal to 3% for hip fracture or greater than or equal to 20% for major osteoporotic fracture based on the [place] adapted WHO algorithm. 4. Other Recommendations: All treatment decisions require clinical judgment and consideration of individual patient factors, including patient preferences, comorbidities, previous drug use, risk factors not captured in the FRAX model (e.g. frailty, falls, vitamin D deficiency, increased bone turnover, interval significant decline in bone density) and possible under or overestimation of fracture risk by FRAX. Additional medical evaluation for secondary cause of low bone mineral density may be appropriate. FUTURE SCAN RECOMMENDATION: People with diagnosed cases of osteoporosis or at high risk for fracture should have regular bone mineral density tests. For patients eligible for Medicare, routine testing is allowed once every 2 years. The testing frequency can be increased to one year for patients who have rapidly progressing disease, those who are receiving or discontinuing medical therapy to restore bone mass, or have additional risk factors.
== END 2023-09-03 08:35 | disposition home or self-care (01) ==
LOC: HO.MAMMO 08:34
PROVIDERS: PCP Internal Medicine; Visit Provider Internal Medicine
DX: Z12.31 Encounter for screening mammogram for malignant neoplasm of breast (principal); Z13.820 Encounter for screening for osteoporosis; Z78.0 Asymptomatic menopausal state
CPT/HCPCS: 77063; 77067; 77080

== ENCOUNTER → 2023-09-03 09:00 | Outpatient (BNV) | payer OTHER, SELFPAY | PROVIDERS: PCP Internal Medicine; Visit Provider Radiology Diagnostic Radiology | DX: Z12.31 Encounter for screening mammogram for malignant neoplasm of breast (principal) | CPT/HCPCS: 77063; 77067 ==

== ENCOUNTER 2023-12-17 08:42 | Outpatient (REF) | payer OTHER, SELFPAY ==
[2023-12-17 09:57] LABS: Alanine Aminotransferase 14 U/L (0-31); Albumin Level 4.5 g/dL (3.5-5.0); Alkaline Phosphatase 58 U/L (39-117); Anion Gap 12 (12-20); Aspartate Amino Transferase 16 U/L (5-31); Bilirubin Total 0.2 mg/dL (0.0-1.0); Blood Urea Nitrogen 29 mg/dL (9-16); Calcium 10.3 mg/dL (8.4-10.2); Carbon Dioxide 28 mmol/L (22-29); Chloride 104 mmol/L (96-108); Cholesterol 166 mg/dL (<200); Estimated Glomerular Filt Rate 57; Glucose Fasting 147 mg/dL (60-99); HDL Cholesterol 40 mg/dL (>40); LDL Cholesterol Calculated 95 mg/dL (<100); Sodium 139 mmol/L (135-145); Thyroid Stimulating Hormone 1.35 uIU/mL (0.32-4.0); Total Protein 7.9 g/dL (6.5-8.0); Triglycerides 155 mg/dL (<150); Vitamin D 25-OH Total 40.7 ng/mL (>30)
[2023-12-17 11:09] LABS: Microalbum/Creatinine Ratio Ur 111.8 ug/mg cr (<30)
== END 2023-12-17 08:43 | disposition home or self-care (01) ==
LOC: HO.LAB 08:42
PROVIDERS: PCP Internal Medicine; Visit Provider Internal Medicine
DX: E11.9 Type 2 diabetes mellitus without complications (principal); E78.5 Hyperlipidemia, unspecified; E03.9 Hypothyroidism, unspecified; E55.9 Vitamin D deficiency, unspecified
CPT/HCPCS: 36415; 80053; 80061; 82043; 82306; 82570; 84443

== ENCOUNTER 2023-12-23 10:29 | Outpatient (AMB) | payer OTHER, SELFPAY ==
[2023-12-23 10:32] VITALS: BP 156/80; BMI 32.0
--- NOTE | 2023-12-23 10:32 | A.OFFPC_ITS ---
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 Required: No Accompanied by: Grand Child Allergies No Known Allergies [No Known Allergies*] Allergy (Verified 12/23/23 10:43) Medication List - Last Reconciled 12/23/23 by Silvia Hernadez MD acetaminophen 500 mg PO TID PRN 30 days aspirin 81 mg PO DAILY 90 days blood sugar diagnostic (FreeStyle Lite Strips) As directed blood-glucose meter (FreeStyle Lite Meter kit) As directed calcium carbonate-vitamin D3 600 mg-5 mcg (200 unit) (Calcium 600 + D(3)) 1 tab PO BID 90 days docusate sodium 100 mg PO BEDTIME fluticasone furoate 200 mcg/actuation (Arnuity Ellipta) 1 inh inhalation DAILY glipizide ER 10 mg PO DAILY 90 days lancets (FreeStyle Lancets) As directed levothyroxine 75 mcg PO DAILY 90 days linagliptin (Tradjenta) 5 mg PO DAILY 90 days lisinopril-hydrochlorothiazide 20-25 mg 1 tab PO DAILY 90 days metformin 1,000 mg PO BID 90 days simvastatin 40 mg PO BEDTIME 90 days Ventolin HFA 90 mcg/actuation (albuterol sulfate) 2 puffs inhalation Q6H PRN 30 days NS Tobacco use date assessed: 07/21/23 Fall risk assessment: No Falls in past year Last assessed Fall Risk: 12/23/23 Dental Screening Dental Screen Date: 12/23/23 Did you have a dental visit in the last 12 months?: Yes Did you have a dental problem in the last 6 months where you did not have access to dental care?: No Was dental information given to patient?: Patient has dentist HPI HPI Comments History of Present Illness Details This is a 78-year-old female with diabetes mellitus type 2 complicated by neuropathy, hypertension, pure hypercholesterolemia and hypothyroidism that comes today for follow-up on her conditions with granddaughter. A1c slightly more elevated than last time but at her house fasting blood glucose is from 110- 120. Dietary changes were advised. Will be repeated for next office visit. She was using gabapentin for her diabetic neuropathy but wanted to discontinue it. Blood pressure elevated today and will be recheck in 3 weeks by nurse navigator. She did had her medication today. LDL slightly elevated and I will change simvastatin to atorvastatin. Lipid panel will be recheck in 4 weeks. TSH is normal. No chest pain or shortness on breath. [facility] Medical History Postmenopausal Moderate persistent asthma Microalbuminuria Class 1 obesity with body mass index (BMI) of 31.0 to 31.9 in adult Hypothyroidism Pure hypercholesterolemia Diabetes mellitus Essential hypertension Surgical History H/O colonoscopy No pertinent past surgical history Family History Mother No problems noted. Father No problems noted. Social History Housing: House Alcohol intake: never Patient Tobacco Use Status: Former Tobacco user Tobacco use type: Cigarette e-Cigarette/Vaping Use: Never Used Second Hand Smoke Exposure: No service: No Current occupational status: disabled Cognitive needs: No Hearing needs: No Vision needs: Yes Questionnaire Thrive Questionnaire Date Thrive assessed: 07/21/23 Are you currently unemployed and looking for a job?: No CHARLES-7 AMB Questionnaire CHARLES-7 Date CHARLES - 7 assessed: 07/21/23 Source: Developed by Drs. Jem Cervantes, Aag Najera, Steven Johnston and colleagues, with an educational rojelio from [employer]. Review of Systems Const All systems reviewed & are unremarkable except as noted in HPI and below Card Denies chest pain at rest, Denies chest pain with activity, Denies edema, Denies irregular heart rhythm, Denies claudication, Denies dyspnea, Denies dyspnea on exertion, Denies orthopnea, Denies paroxysmal nocturnal dyspnea and Denies slow heart rate Resp Denies cough, Denies dyspnea and Denies dyspnea on exertion Physical exam (Primary Care) Vital Signs: Last Vital Signs BP 156/80 H 12/23/23 10:32 BMI result Body Mass Index 32.0 BMI Assessment/Plan discussion: High BMI High, discussed plan: lifestyle, weight reduction, dietary and physical activity Tobacco/Smoking Status: Tobacco use Status Tobacco use date assessed 07/21/23 12/23/23 10:40 Patient Tobacco Use Status Former Tobacco user 12/23/23 10:40 Tobacco use type Cigarette 12/23/23 10:40 e-Cigarette/Vaping Use Never Used 12/23/23 10:40 Thrive Assessment: Date of Thrive Assessment Date Thrive assessed 07/21/23 12/23/23 10:40 Resp Effort & Inspection: normal respiratory effort Auscultation: clear to auscultation bilaterally Cardio Jugular venous distension: no JVD Rate: regular rate Rhythm: regular rhythm Heart sounds: S1 normal heart sound present and S2 normal heart sound present Extrem General: Yes full ROM Office Procedures Flu Questionnaire Does the patient have a severe egg allergy?: No Does the patient have severe life threatening allergies?: No Does the patient have a fever or illness today?: No Has the patient ever had Guillain-[place] Syndrome?: No Has the patient ever had any past reaction to a flu shot?: No Results AMB Hemoglobin A1c AMB Hemoglobin A1c 7.3 % Last Edit by GRAY Wilson on 12/23/23 10:4 3 Immunizations Fluarix Triv [id number] (PF) 45 mcg (15 mcg x 3)/0.5 mL IM syringe Performing Provider: Silvia Hernadez MD [facility] Administered by: GRAY Wilson on 12/23/23 10:51 Dose Route Admin Location Dispensed Lot Number Expiration Date [facility] Junior Automation Engineer 0.5 mL IM Left Deltoid 0.5 mL [id number] 09/05/24 [id number] [employer] VIS Given Date VIS Provided VIS Publication Date 12/23/23 Single Vaccine 20 Eligibility Eligibility Date Funding Source Not [facility] Eligible 12/23/23 Private Results Reviewed Results Reviewed: Laboratory Last Values Hgb A1c (Clinic) 7.3 % (4.0-6.0) H 12/23/23 10:31 Coding Level of Care Code Est Pt Level 4 (61001) Complex EM visit Add On G2211 Diagnoses Diabetic neuropathy E11.40 Type 2 diabetes mellitus without complication, without long-term current use of insulin E11.9 Diabetes mellitus type: type 2 Diabetes mellitus correction insulin use: without correction use Diabetes mellitus complication status: without complication Hypothyroidism E03.9 Pure hypercholesterolemia E78.00 Essential hypertension I10 Microalbuminuria R80.9 Time Spent (min) 24 Assessment & Plan Assessment & Plan (1) Diabetic neuropathy: Code(s): E11.40 - Type 2 diabetes mellitus with diabetic neuropathy, unspecified Category: Medical Plan: Discontinue gabapentin. 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 A1c goal is equal or less than 7%. (3) Hypothyroidism: Code(s): E03.9 - Hypothyroidism, unspecified Category: Medical Plan: Continue levothyroxine. Monitor TSH. (4) Pure hypercholesterolemia: Code(s): E78.00 - Pure hypercholesterolemia, unspecified Category: Medical Plan: Change simvastatin to atorvastatin. LDL goal is less than 70. (5) Essential hypertension: Code(s): I10 - Essential (primary) hypertension Category: Medical Plan: Continue lisinopril-hydrochlorothiazide. Blood pressure goal is equal or less than 130/80. Recheck blood pressure with nurse navigator. (6) Microalbuminuria: Code(s): R80.9 - Proteinuria, unspecified Category: Medical Plan: Referred to nephrology. Orders: Orders Lipid Panel 4 Months E78.5 - Hyperlipidemia, unspecified Vitamin D 25-OH Total 4 Months E55.9 - Vitamin D deficiency, unspecified Comprehensive [place]. Panel Fast 4 Months E11.9 - Type 2 diabetes mellitus without complications Influenza [id number] Immunization Today Z23 - Encounter for immunization AMB Hemoglobin A1c Today E11.9 - Type 2 diabetes mellitus without complications Complete Blood Count Auto Diff 4 Months D64.9 - Anemia, unspecified IRON PROFILE 4 Months D64.9 - Anemia, unspecified Microalbumin, Random (w Creat) 4 Months R80.9 - Proteinuria, unspecified Referrals Nephrology Referral R80.9 - Proteinuria, unspecified Medications: New atorvastatin 40 mg PO BEDTIME 90 days 90 tabs 1RF Discontinued simvastatin Discontinued Reason: Patient Completed Course 40 mg PO BEDTIME 90 days 90 tabs 1RF
[2023-12-23 11:59] VITALS: BP 150/80
== END 2023-12-23 10:59 | disposition home or self-care (01) ==
PROVIDERS: PCP Internal Medicine; Visit Provider Internal Medicine
DX: E11.40 Type 2 diabetes mellitus with diabetic neuropathy, unspecified (principal); E03.9 Hypothyroidism, unspecified; E78.00 Pure hypercholesterolemia, unspecified; I10 Essential (primary) hypertension; R80.9 Proteinuria, unspecified; Z23 Encounter for immunization

== ENCOUNTER → 2023-12-23 10:29 | Outpatient (BNVA) | payer OTHER, SELFPAY | PROVIDERS: PCP Internal Medicine; Visit Provider Internal Medicine | DX: Z23 Encounter for immunization (principal); E11.40 Type 2 diabetes mellitus with diabetic neuropathy, unspecified; E03.9 Hypothyroidism, unspecified; E78.00 Pure hypercholesterolemia, unspecified; R80.9 Proteinuria, unspecified; I10 Essential (primary) hypertension | CPT/HCPCS: 83036; 90471; 90656; 99212 ==

== ENCOUNTER 2024-01-11 11:32 | Outpatient (AMB) | payer OTHER, SELFPAY ==
--- NOTE | 2024-01-11 11:37 | HO.NEPHOV ---
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 Granddaughter will interpret if needed. ) Optometry Doctor Name: Ninoska Accompanied by: Grand Child Allergies No Known Allergies [No Known Allergies*] Allergy (Verified 01/11/24 11:38) HPI Comments Details: Jennifer Danielson is a delightful 79-year-old female with longstanding diabetes on multiple oral hypoglycemic agents. Her blood sugar control is pretty good. She has been having proteinuria. She has hypertension and is on lisinopril/HCTZ. She has no pedal edema. She denies any froth or foam in the urine. She does not have any hypercalcemia or back pain. She denies taking excessive nonsteroidal anti-inflammatories. She does not have any coronary artery disease, carotid stenosis, congestive heart failure, CVA, renal artery stenosis or peripheral arterial disease. She is compliant with her medications. She denies any epistaxis, recurrent sore throat, microscopic hematuria, photosensitivity, skin rashes, joint swelling or any history of autoimmune diseases. She feels well [facility] Medical History Postmenopausal Moderate persistent asthma Microalbuminuria Class 1 obesity with body mass index (BMI) of 31.0 to 31.9 in adult Hypothyroidism Pure hypercholesterolemia Diabetes mellitus Essential hypertension Surgical History H/O colonoscopy No pertinent past surgical history Family History Mother No problems noted. Father No problems noted. Social History Housing: House Alcohol intake: never Patient Tobacco Use Status: Former Tobacco user Tobacco use type: Cigarette e-Cigarette/Vaping Use: Never Used Second Hand Smoke Exposure: No service: No Current occupational status: disabled Cognitive needs: No Hearing needs: No Vision needs: Yes Review of Systems Const All systems reviewed & are unremarkable except as noted in HPI and below Physical Exam Vital Signs: Last Vital Signs Pulse 83 01/11/24 11:39 BP 126/60 01/11/24 11:39 Pulse Ox 96 01/11/24 11:39 Oxygen Delivery Method Room Air 01/11/24 11:39 BMI result Body Mass Index 32.1 Const General: comfortable and no acute distress Orientation/consciousness: patient oriented x3 HEENT Head: Yes normocephalic Mouth: Normal oral and palatal mucosa present Eyes EOM: EOMs intact bilaterally Neck Neck: Yes supple Resp Auscultation: clear to auscultation bilaterally Cardio Jugular venous distension: no JVD Rate: regular rate GI Palpation (GI): Soft to palpation Auscultation: normal bowel sounds General: Yes no CVA tenderness Back/Spine/Pelvis Back: no CVA tenderness Skin General skin exam: no rashes or lesions noted Neuro General: patient oriented x3 and moves all extremities Extrem General: Yes no pedal edema Results Reviewed Nephrology Results: Sodium 139 mmol/L (135-145) 12/17/23 Potassium 5.0 mmol/L (3.3-5.1) 12/17/23 Chloride 104 mmol/L (96-108) 12/17/23 Carbon Dioxide 28 mmol/L (22-29) 12/17/23 BUN 29 mg/dL (9-16) H 12/17/23 Creatinine 0.95 mg/dL (0.5-1.4) 12/17/23 Calcium 10.3 mg/dL (8.4-10.2) H 12/17/23 Urine Creatinine 87.60 mg/dL 12/17/23 Assessment & Plan Assessment & Plan (1) Proteinuria: Code(s): R80.9 - Proteinuria, unspecified Category: Medical Qualifiers: Proteinuria type: other Qualified Code(s): R80.8 - Other proteinuria (2) Essential hypertension: Code(s): I10 - Essential (primary) hypertension Category: Medical Plan Ms. 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 She has been on JOHN inhibitor/hydrochlorothiazide which I discontinued today. I increased her lisinopril to 30 mg a day. We could consider switching her from Tradjenta to Jardiance. She maintains good hydration and avoids nonsteroidal anti-inflammatories. I ordered follow-up blood work and urine studies. There is no indication for any renal biopsy now. Answered all her and her granddaughters questions. Follow-up appointment given. Orders: Orders Creatinine 1 Month R80.9 - Proteinuria, unspecified Blood Urea Nitrogen 1 Month R80.9 - Proteinuria, unspecified Immunofixation, Random Urine 1 Month R80.9 - Proteinuria, unspecified Electrolytes 1 Month R80.9 - Proteinuria, unspecified Immunofixation Pnl, Serum 1 Month R80.9 - Proteinuria, unspecified Protein Creatinine Ratio, Ur 1 Month R80.9 - Proteinuria, unspecified Medications: New lisinopril Take 2 tablets AM and 1 tablet PM 30 mg (3 x 10 mg) PO DAILY 90 tabs 6RF 30 days Discontinued lisinopril-hydrochlorothiazide 20-25 mg Discontinued Reason: Doctor's Order 1 tab PO DAILY 90 days 90 tabs 1RF Coding Level of Care Code New Pt Level 4 (94125) Diagnoses Other proteinuria R80.8 Proteinuria type: other Essential hypertension I10
[2024-01-11 11:39] VITALS: BP 126/60; PULSE 83; O2SAT 96; BMI 32.1
== END 2024-01-11 11:56 | disposition home or self-care (01) ==
LOC: HO.HKA 11:33
PROVIDERS: PCP Internal Medicine; Referring Provider Internal Medicine; Visit Provider Internal Medicine Nephrology
DX: R80.8 Other proteinuria (principal); I10 Essential (primary) hypertension
CPT/HCPCS: 99204

== ENCOUNTER → 2024-01-11 11:32 | Outpatient (BNVA) | payer OTHER, SELFPAY | PROVIDERS: PCP Internal Medicine; Referring Provider Internal Medicine; Visit Provider Internal Medicine Nephrology | DX: R80.8 Other proteinuria (principal); I10 Essential (primary) hypertension; R80.9 Proteinuria, unspecified; E11.9 Type 2 diabetes mellitus without complications; Z79.84 Long term (current) use of oral hypoglycemic drugs | CPT/HCPCS: 99202 ==

== ENCOUNTER 2024-02-09 08:09 | Outpatient (REF) | payer OTHER, SELFPAY ==
[2024-02-09 09:17] LABS: Anion Gap 10 (12-20); Blood Urea Nitrogen 18 mg/dL (9-16); Carbon Dioxide 28 mmol/L (22-29); Chloride 107 mmol/L (96-108); Estimated Glomerular Filt Rate > 60; Potassium 4.2 mmol/L (3.3-5.1); Sodium 141 mmol/L (135-145)
[2024-02-09 09:19] LABS: Creatinine Urine 104.64 mg/dL; Protein/Creatinine Ratio, Ur 0.34 (<0.2); Total Protein Urine Random 36 mg/dL (<12)
[2024-02-15 22:14] LABS: IgA 148 mg/dL (70-320); IgG 1108 mg/dL (600-1540); IgM 74 mg/dL (50-300)
== END 2024-02-09 08:10 | disposition home or self-care (01) ==
LOC: HO.LAB 08:09
PROVIDERS: PCP Internal Medicine; Visit Provider Internal Medicine Nephrology
DX: R80.9 Proteinuria, unspecified (principal)
CPT/HCPCS: 80051; 82565; 82570; 82784; 84156; 84520; 86334; 86335

== ENCOUNTER 2024-02-17 10:26 | Outpatient (AMB) | payer OTHER, SELFPAY ==
--- NOTE | 2024-02-17 10:47 | HO.NEPHOV_ITS ---
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 Her blood sugar control is pretty good. She has H/O proteinuria. She has hypertension and is on lisinopril. She has no pedal edema. She denies any froth or foam in the urine. She does not have any hypercalcemia or back pain. She denies taking excessive nonsteroidal anti- inflammatories. She does not have any coronary artery disease, carotid stenosis, congestive heart failure, CVA, renal artery stenosis or peripheral arterial disease. She is compliant with her medications. She denies any epistaxis, recurrent sore throat, microscopic hematuria, photosensitivity, skin rashes, joint swelling or any history of autoimmune diseases. She feels well [facility] Medical History Postmenopausal Moderate persistent asthma Microalbuminuria Class 1 obesity with body mass index (BMI) of 31.0 to 31.9 in adult Hypothyroidism Pure hypercholesterolemia Diabetes mellitus Essential hypertension Surgical History H/O colonoscopy No pertinent past surgical history Family History Mother No problems noted. Father No problems noted. Social History Housing: House Alcohol intake: never Patient Tobacco Use Status: Former Tobacco user Tobacco use type: Cigarette e-Cigarette/Vaping Use: Never Used Second Hand Smoke Exposure: No service: No Current occupational status: disabled Cognitive needs: No Hearing needs: No Vision needs: Yes Review of Systems Const All systems reviewed & are unremarkable except as noted in HPI and below Physical Exam Vital Signs: Last Vital Signs Pulse 86 02/17/24 10:50 BP 130/60 02/17/24 10:50 Pulse Ox 96 02/17/24 10:50 Oxygen Delivery Method Room Air 02/17/24 10:50 BMI result Body Mass Index 32.2 Const General: comfortable and no acute distress Orientation/consciousness: patient oriented x3 HEENT Head: Yes normocephalic Mouth: Normal oral and palatal mucosa present Eyes EOM: EOMs intact bilaterally Neck Neck: Yes supple Resp Auscultation: clear to auscultation bilaterally Cardio Jugular venous distension: no JVD Rate: regular rate GI Palpation (GI): Soft to palpation Auscultation: normal bowel sounds General: Yes no CVA tenderness Back/Spine/Pelvis Back: no CVA tenderness Skin General skin exam: no rashes or lesions noted Neuro General: patient oriented x3 and moves all extremities Extrem General: Yes no pedal edema Results Reviewed Nephrology Results: Sodium 141 mmol/L (135-145) 02/09/24 Potassium 4.2 mmol/L (3.3-5.1) 02/09/24 Chloride 107 mmol/L (96-108) 02/09/24 Carbon Dioxide 28 mmol/L (22-29) 02/09/24 BUN 18 mg/dL (9-16) H 02/09/24 Creatinine 0.79 mg/dL (0.5-1.4) 02/09/24 Urine Creatinine 104.64 mg/dL 02/09/24 Protein/Creatinin Ratio 0.34 (<0.2) H 02/09/24 Assessment & Plan Assessment & Plan (1) Essential hypertension: Code(s): I10 - Essential (primary) hypertension Category: Medical (2) Diabetic nephropathy associated with type 2 diabetes mellitus: Code(s): E11.21 - Type 2 diabetes mellitus with diabetic nephropathy Category: Medical Plan Ms. 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 She is been on lisinopril which was increased to 30 mg a day at the last visit. I plan to maximize it with time. We could consider switching her from Tradjenta to Jardiance. She maintains good hydration and avoids nonsteroidal anti-inflammatories. I ordered follow-up blood work and urine studies. There is no indication for any renal biopsy now. Answered all her and her grand sons questions. Follow-up appointment given. Orders: Orders Creatinine 4 Months E11. - Type 2 diabetes mellitus with diabetic nephropathy, I10 - Essential (primary) hypertension Blood Urea Nitrogen 4 Months E11. - Type 2 diabetes mellitus with diabetic nephropathy, I10 - Essential (primary) hypertension Electrolytes 4 Months E11. - Type 2 diabetes mellitus with diabetic nephrop athy, I10 - Essential (primary) hypertension Protein Creatinine Ratio, Ur 4 Months E11. - Type 2 diabetes mellitus with diabetic nephropathy, I10 - Essential (primary) hypertension Coding Level of Care Code Est Pt Level 4 (32013) Diagnoses Essential hypertension I10 Diabetic nephropathy associated with type 2 diabetes mellitus E11
[2024-02-17 10:50] VITALS: BP 130/60; PULSE 86; O2SAT 96; BMI 32.2
== END 2024-02-17 11:14 | disposition home or self-care (01) ==
PROVIDERS: PCP Internal Medicine; Visit Provider Internal Medicine Nephrology
DX: I10 Essential (primary) hypertension (principal); E11.21 Type 2 diabetes mellitus with diabetic nephropathy
CPT/HCPCS: 99214

== ENCOUNTER → 2024-02-17 10:26 | Outpatient (BNVA) | payer OTHER, SELFPAY | PROVIDERS: PCP Internal Medicine; Visit Provider Internal Medicine Nephrology | DX: E11.21 Type 2 diabetes mellitus with diabetic nephropathy (principal); I10 Essential (primary) hypertension; Z79.84 Long term (current) use of oral hypoglycemic drugs | CPT/HCPCS: 99212 ==

== ENCOUNTER 2024-04-29 09:42 | Outpatient (REF) | payer OTHER, SELFPAY ==
[2024-04-29 09:58] LABS: MANUAL DIFF FLAG NO
--- OUTSIDE RECORDS SUMMARY | 2024-04-29 10:20 | XMS_ITS | Clinical Summary ---
Author Organization [facility] Address [address] [place] [address] Phone Care Team Providers Care Reed Man Name Role Phone Silvia Wright MD Primary Care Provider [phone] Allergies No known active allergies Medications Acetaminophen Extra Strength 500 MG tablet Take 500 mg by mouth 3 times a day 04/16/2021 Active albuterol HFA (PROVENTIL HFA;VENTOLIN HFA) 108 (90 Base) MCG/ACT inhaler INHALE 2 PUFFS BY MOUTH FOUR TIMES DAILY NEEDED FOR ASTHMA 06/01/2021 Active Aspirin Low Dose 81 MG EC tablet Take 81 mg by mouth 1 (one) time each day 04/10/2021 Active Calcium 600 + D 600-200 MG-UNIT tablet Take 1 tablet by mouth 2 (two) times a day 04/16/2021 Active glipiZIDE (GLUCOTROL XL) 5 MG 24 hr tablet Take 5 mg by mouth 1 (one) time each day 06/10/2021 Active levothyroxine (SYNTHROID, LEVOTHROID) 75 MCG tablet Take 75 mcg by mouth 1 (one) time each day 04/16/2021 Active lisinopril-hydr oCHLOROthiazide (PRINZIDE,ZESTO RETIC) 20-25 MG per tablet Take 1 tablet by mouth 1 (one) time each day 04/16/2021 Active simvastatin (ZOCOR) 20 MG tablet Take 20 mg by mouth at bed time 06/20/2021 Active metFORMIN (GLUCOPHAGE) 1000 MG tablet Take 1,000 mg by mouth in the morning and 1,000 mg in the evening. 03/29/2021 Active gabapentin (NEURONTIN) 100 MG capsule TAKE ONE CAPSULE BY MOUTH IN THE MORNING AND BEFORE BEDTIME 60 capsule 1 01/27/2023 Active Active Problems Problem Noted Date Diagnosed Date Type 2 diabetes mellitus wit h diabetic autonomic (poly)neuropathy 07/04/2021 Essential (primary) hypertension 07/04/2021 Hypercholesterolemia 07/04/2021 Hypothyroidism 07/04/2021 Microalbuminuria 07/04/2021 Chronic kidney disease, stage 2 (mild) 2 Social History Tobacco Use Types Packs/Day Years Used Date Smoking Tobacco: Never Assessed Alcohol Use Standard Drinks/Week Comments Never 0 (1 standard drink = 0.6 oz pur e alcohol) Comments Unknown Sex and Gender Information Value Date Recorded Sex Assigned at Not on file Legal Sex Female 10:22 AM EDT Gender Identity Not on file Sexual Orientation Not on file Last Filed Vital Signs Vital Sign Reading Time Taken Comments Blood Pressure 140/64 11/03/2022 1:47 PM EDT Pulse 63 11/03/2022 1:47 PM EDT Temperature - - Respiratory Rate - - Oxygen Saturation 96% 11/03/2022 1:47 PM EDT Inhaled Oxygen Concentration - - Weight 67 kg (147 lb 9.6 oz) 11/03/2022 1:47 PM EDT Height - - Body Mass Index - - Plan of Treatment Health Maintenance Due Date Last Done Comments Pneumococcal Vaccine: 65+ Ye ars (1 of 2 - PCV) 1951 Diabetes: Hemoglobin A1C 07/04/2021 03/29/2021 Diabetes: Ophthalmology Exam 07/04/2021 Diabetes: Pedal Pulse Checked 07/04/2021 Diabetes: Sensory Foot Exam 07/04/2021 Diabetes: Visual Foot Exam 07/04/2021 Influenza Vaccine (#1) 2023 Hepatitis B Vaccine Aged Out No longe r eligible based on patient's age to complete this topic Procedures Procedure Name Priority Date/Time Associated Diagnosis Comments EXT RESULT ENTRY Routine 03/29/2021 from Last 3 Months or Most Recently Relevant to Health Maintenance Results * (ABNORMAL) EXT RESULT ENTRY (03/29/2021) Sodium 141 137 - 147 Potassium 4.6 3.4 - 5.5 Chloride 104.0 99.0 - 108.0 Anion Gap 15 <=30 MMOL/L BUN 29(A) 4 - 21 mg/dL Creatinine 0.88 0.50 - 1.10 mg/dL Albumin 4.3 3.5 - 5.0 g/dL Calcium 9.7 8.7 - 10.7 mg/dL Hemoglobin A1C 7.1(A) 4.0 - 6.0 03/29/2021 us Historical Provider LAB BLOOD ORDERABLES Heaven l Result from Last 3 Months or Most Recently Relevant to Health Maintenance Insurance [facility] ([id number]) [facility] ([id number]) Care Teams Reed Man Relationship Specialty Start Date End Date Silvia Wright MD [address] [place] [address] PCP - General Internal Medicine 06/20/21
[2024-04-29 10:34] LABS: Basophils Absolute Auto 0.1 X10*3/uL (0.0-0.2); Basophils Percent Auto 0.8 % (0-2); Eosinophils Absolute Auto 0.3 X10*3/uL (0.0-0.4); Eosinophils Percent Auto 2.4 % (0-4); Hematocrit 37.3 % (37.0-47.0); Hemoglobin 11.5 g/dl (12.0-16.0); Imm Gran Abs Auto 0.13 X10*3/uL (0.00-0.03); Imm Gran Pct Auto 1.2 % (0.0-0.4); Lymphocytes Absolute Auto 2.5 X10*3/uL (1.2-4.9); Lymphocytes Percent Auto 22.1 % (20-40); Mean Corpuscular HGB Conc 30.8 g/dl (31.0-35.0); Mean Corpuscular Hemoglobin 25.4 pg (27.0-33.0); Mean Corpuscular Volume 82.3 fL (80.0-98.0); Mean Platelet Volume 9.5 fL (9.4-12.3); Monocytes Absolute Auto 0.5 X10*3/uL (0.1-1.2); Monocytes Percent Auto 4.8 % (2-11); Neutrophils Absolute Auto 7.8 x10*3/uL (2.0-8.3); Neutrophils Percent Auto 68.7 % (45-73); Platelet Count 416 X10*3/uL (160-400); Red Blood Count 4.53 X10*6/uL (4.20-5.50); Red Cell Distribution Width 13.6 % (11.0-16.0); White Blood Count 11.3 X10*3/uL (4.8-10.8)
[2024-04-29 11:13] LABS: Alanine Aminotransferase 13 U/L (0-31); Albumin Level 4.3 g/dL (3.5-5.0); Alkaline Phosphatase 59 U/L (39-117); Anion Gap 12 (12-20); Aspartate Amino Transferase 21 U/L (5-31); Bilirubin Total 0.3 mg/dL (0.0-1.0); Blood Urea Nitrogen 13 mg/dL (9-16); Calcium 9.6 mg/dL (8.4-10.2); Carbon Dioxide 27 mmol/L (22-29); Chloride 106 mmol/L (96-108); Cholesterol 107 mg/dL (<200); Estimated Glomerular Filt Rate > 60; Glucose Fasting 110 mg/dL (60-99); HDL Cholesterol 41 mg/dL (>40); Iron 41 mcg/dL (30-160); LDL Cholesterol Calculated 46 mg/dL (<100); Percent Iron Saturation 13 % (15-50); Potassium 4.4 mmol/L (3.3-5.1); Sodium 141 mmol/L (135-145); Total Iron Binding Capacity 307 mcg/dL (228-428); Total Protein 8.1 g/dL (6.5-8.0); Triglycerides 102 mg/dL (<150); Unsaturated Iron Binding 266 ug/dL
[2024-04-29 11:19] LABS: Thyroid Stimulating Hormone 1.86 uIU/mL (0.32-4.0); Vitamin D 25-OH Total 31.8 ng/mL (>30)
[2024-04-29 12:08] LABS: Creatinine Urine 72.94 mg/dL; Microalbum/Creatinine Ratio Ur 367.4 ug/mg cr (<30)
== END 2024-04-29 09:43 | disposition home or self-care (01) ==
LOC: HO.LAB 09:42
PROVIDERS: PCP Internal Medicine; Visit Provider Internal Medicine
DX: D64.9 Anemia, unspecified (principal); E78.5 Hyperlipidemia, unspecified; E11.9 Type 2 diabetes mellitus without complications; E03.9 Hypothyroidism, unspecified; E55.9 Vitamin D deficiency, unspecified
CPT/HCPCS: 36415; 80053; 80061; 82043; 82306; 82570; 83540; 84443; 85025

== ENCOUNTER 2024-05-04 09:49 | Outpatient (AMB) | payer OTHER, SELFPAY ==
--- NOTE | 2024-05-04 10:07 | MHC.PC.OV ---
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: Yes [employer] Floor[employer] Language: Press Secretary Name: Silvia Hernadez MD Information Interpreted: non-clinical & clinical Accompanied by: Self / Same As Patient Allergies No Known Allergies [No Known Allergies*] Allergy (Verified 05/04/24 10:22) Medication List - Last Reconciled 05/04/24 by Silvia Hernadez MD acetaminophen 500 mg PO TID PRN 30 days aspirin 81 mg PO DAILY 90 days atorvastatin 40 mg PO BEDTIME 90 days blood sugar diagnostic (FreeStyle Lite Strips) As directed blood-glucose meter (FreeStyle Lite Meter kit) As directed calcium carbonate-vitamin D3 600 mg-5 mcg (200 unit) (Calcium 600 + D(3)) 1 tab PO BID 90 days docusate sodium 100 mg PO BEDTIME fluticasone furoate 200 mcg/actuation (Arnuity Ellipta) 1 inh inhalation DAILY glipizide ER 10 mg PO DAILY 90 days lancets (FreeStyle Lancets) As directed levothyroxine 75 mcg PO DAILY 90 days linagliptin (Tradjenta) 5 mg PO DAILY 90 days lisinopril 30 mg (3 x 10 mg) PO DAILY 30 days metformin 1,000 mg PO BID 90 days Ventolin HFA 90 mcg/actuation (albuterol sulfate) 2 puffs inhalation Q6H PRN 30 days NS Tobacco use date assessed: 05/04/24 Fall risk assessment: No Falls in past year Last assessed Fall Risk: 05/04/24 Dental Screening Dental Screen Date: 05/04/24 Did you have a dental visit in the last 12 months?: Yes Did you have a dental problem in the last 6 months where you did not have access to dental care?: No Was dental information given to patient?: Patient has dentist HPI HPI Comments History of Present Illness Details The patient is a 79-year-old female presenting for management of Type 2 Diabetes Mellitus. Currently, her Hemoglobin A1c is suboptimal at 7.4, increasing the need for enhanced dietary control and compliance with her current oral hypoglycemic regimen. She is on Glipizide and Metformin with home glucose readings satisfactory. Attention is also on her hypertension, controlled with Lisinopril, and hyperlipidemia treated with Atorvastatin, achieving targeted LDL levels. Her constipation, obstructive sleep apnea, asthma, and hormonal function related to hypothyroidism are under surveillance, with appropriate pharmacotherapy in place. Proteinuria was noted, alongside mild anemia, prompting a repeat of hematologic parameters. A colonoscopy was due, though the patient opted out of further evaluation at present. [facility] Medical History (Updated 05/04/24 @ 12:20 by Silvia Hernadez MD) Postmenopausal Moderate persistent asthma Microalbuminuria Class 1 obesity with body mass index (BMI) of 31.0 to 31.9 in adult Hypothyroidism Pure hypercholesterolemia Diabetes mellitus Essential hypertension Surgical History H/O colonoscopy No pertinent past surgical history Family History Mother No problems noted. Father No problems noted. Social History Housing: House Alcohol intake: never Patient Tobacco Use Status: Former Tobacco user Tobacco use type: Cigarette e-Cigarette/Vaping Use: Never Used Second Hand Smoke Exposure: No service: No Current occupational status: disabled Cognitive needs: No Hearing needs: No Vision needs: Yes Questionnaire PHQ-9 Over the last 2 weeks, how often have you been bothered by any of the following problems? 1. Little interest or pleasure in doing things: not at all 2. Feeling down, depressed, or hopeless: not at all 3. Trouble falling or staying asleep, or sleeping too much: not at all 4. Feeling tired or having little energy: not at all 5. Poor appetite or overeating: not at all 6. Feeling bad about yourself - or that you are a failure or have let yourself or your family down: not at all 7. Trouble concentrating on things, such as reading the newspaper or watching television: not at all 8. Moving or speaking so slowly that other people could have noticed. Or the opposite - being so fidgety or restless that you have been moving around a lot more than usual: not at all 9. Thoughts that you would be better off or of hurting yourself in some way: not at all Total score: 0 Depression Screening Interpretation: Negative Depression Screening Done: Yes 23191 - PHQ-9 Billing: Yes Source: Developed by Drs. Jem Cervantes, Steven Musa and colleagues, with an educational rojelio from [employer]. Thrive Questionnaire Date Thrive assessed: 05/04/24 I am a: Patient What is your living situation today?: I have a steady place to live Within the past 12 months, did the food you bought not last and you didn't have the money to get more?: Never true Within the past 12 months, did you worry whether your food would run out before you got money to buy more?: Never true Do you have trouble paying for medicines?: No Do you have trouble getting transportation to medical appointments?: No Do you have trouble paying your heating and electricity bill?: No Do you have trouble taking care of your child, family member or friend?: No Do you have trouble with day-to-day activities such as bathing, preparing meals, shopping, managing finances, etc.?: No Are you currently unemployed and looking for a job?: No Are you interested in more education?: No Currently or been in a relationship where the following occur: No concerns reported THRIVE Score: 0 AUDIT C Alcohol Use Questionnaire (AUDIT-C) 1. How often do you have a drink containing alcohol?: Never Total Score: 0 Score Reviewed/Action Taken: No CHARLES-7 AMB Questionnaire CHARLES-7 Date CHARLES - 7 assessed: 05/04/24 Feeling nervous, anxious, or on edge: 0 = Not at all Not being able to stop or control worryin = Not at all Worrying too much about different things: 0 = Not at all Trouble relaxin = Not at all Being so restless that it is hard to sit still: 0 = Not at all Becoming easily annoyed or irritable: 0 = Not at all Feeling afraid as if something awful might happen: 0 = Not at all Total CHARLES-7 score (0-4 normal; 5-9 mild; 10-14 moderate; 15-21 severe): 0 Source: Developed by Aga Benitez Kurt Kroenke and colleagues, with an educational orjelio from [employer]. CHARLES-7 Assessment Billing CHARLES-7 Assessment Tool: CHARLES-7 Assessment 85682 Review of Systems Const All systems reviewed & are unremarkable except as noted in HPI and below Card Denies chest pain at rest, Denies chest pain with activity, Denies edema, Denies irregular heart rhythm, Denies claudication, Denies dyspnea, Denies dyspnea on exertion, Denies orthopnea, Denies paroxysmal nocturnal dyspnea and Denies slow heart rate Resp Denies cough, Denies dyspnea and Denies dyspnea on exertion GI Denies abdominal pain, Denies change in bowel habits, Denies excessive flatus, Denies nausea and Denies vomiting Denies urinary incontinence, Denies urinary hesitancy and Denies urinary urgency Musc Denies atrophy, Denies deformity and Denies limited range of motion Physical exam (Primary Care) Vital Signs: Last Vital Signs Pulse 85 05/04/24 10:09 BP 132/62 05/04/24 10:09 Pulse Ox 96 05/04/24 10:09 Oxygen Delivery Method Room Air 05/04/24 10:09 BMI result Body Mass Index 31.8 Tobacco/Smoking Status: Tobacco use Status Tobacco use date assessed 05/04/24 05/04/24 10:09 Patient Tobacco Use Status Former Tobacco user 05/04/24 10:09 Tobacco use type Cigarette 05/04/24 10:09 e-Cigarette/Vaping Use Never Used 05/04/24 10:09 PHQ-9: PHQ-9 Score PHQ-9: Total score 0 05/04/24 10:23 Depression Screening Interpretation: Negative Thrive Assessment: Date of Thrive Assessment Date Thrive assessed 05/04/24 05/04/24 10:09 Currently or been in a relationship where the following occur: No concerns reported Resp Effort & Inspection: normal respiratory effort Auscultation: clear to auscultation bilaterally Cardio Jugular venous distension: no JVD Rate: regular rate Rhythm: regular rhythm Heart sounds: S1 normal heart sound present and S2 normal heart sound present Extrem General: Yes full ROM Results AMB Hemoglobin A1c AMB Hemoglobin A1c 7.4 % Last Edit by Kyung Mazariegos CMA on 05/04/24 10:22 Results Reviewed Results Reviewed: Laboratory Last Values Hgb A1c (Clinic) 7.4 % (4.0-6.0) H 05/04/24 10:09 Coding Level of Care Code Est Pt Level 4 (71800) Complex EM visit Add On G2211 Diagnoses Diabetic nephropathy associated with type 2 diabetes mellitus E11.21 Diabetic neuropathy E11.40 Elevated total protein R77.8 Moderate persistent asthma J45.40 Hypothyroidism E03.9 Pure hypercholesterolemia E78.00 Essential hypertension I10 Additional Codes CHARLES-7 Assessment Billing - CHARLES-7 Assessment Tool: CHALRES-7 Assessment 67335 ([id number]) PHQ-9 - 01575 - PHQ-9 Billing: Yes ([id number]) Time Spent (min) 24 Assessment & Plan Assessment & Plan (1) Diabetic nephropathy associated with type 2 diabetes mellitus: Code(s): E11.21 - Type 2 diabetes mellitus with diabetic nephropathy Category: Medical (2) Diabetic neuropathy: Code(s): E11.40 - Type 2 diabetes mellitus with diabetic neuropathy, unspecified Category: Medical (3) Elevated total protein: Code(s): R77.8 - Other specified abnormalities of plasma proteins Category: Medical (4) Moderate persistent asthma: Code(s): J45.40 - Moderate persistent asthma, uncomplicated Category: Medical (5) Hypothyroidism: Code(s): E03.9 - Hypothyroidism, unspecified Category: Medical (6) Pure hypercholesterolemia: Code(s): E78.00 - Pure hypercholesterolemia, unspecified Category: Medical (7) Essential hypertension: Code(s): I10 - Essential (primary) hypertension Category: Medical Plan The management plan includes reinforcing dietary modifications to improve control of Type 2 Diabetes Mellitus, especially aiming for better glycemic levels. Medications for hypertension and hyperlipidemia remain unchanged due to stable management. Follow-up tests will monitor proteinuria and mild anemia. The patient prefers delay in a colonoscopy; however, the significance of routine screening was highlighted. Patient was informed and verbally consented to the use of an ambient scribe for clinic note documentation during this visit. I discussed with the patient the importance of maintaining dietary modifications to better manage her blood glucose levels and the potential need for medication adjustments if targets are unmet. The importance of maintaining her current medication regimen for hypertension and hyperlipidemia was reinforced, given the favorable therapeutic outcomes. I explained the necessity of follow-up labs to monitor her proteinuria and mild anemia. The colonoscopy was recommended, given the presence of positive findings in a prior test, but the patient preferred to hold off. I acknowledged her decision and emphasized my availability for future discussions and interventions. Orders: Orders AMB Hemoglobin A1c Today Z13.9 - Encounter for screening, unspecified IRON PROFILE 4 Months D64.9 - Anemia, unspecified Complete Blood Count Auto Diff 4 Months D64.9 - Anemia, unspecified Vitamin B12 and Folate 4 Months E53.8 - Deficiency of other specified B group vitamins Comprehensive [place]. Panel Fast 4 Months E11.21 - Type 2 diabetes mellitus with diabetic nephropathy Lipid Panel 4 Months E78.5 - Hyperlipidemia, unspecified Protein Electrophoresis, Serum 4 Months R77.8 - Other specified abnormalities of plasma proteins Vitamin D 25-OH Total 4 Months E55.9 - Vitamin D deficiency, unspecified Referrals Open Access Screening Colonoscopy Referral R19.5 - Other fecal abnormalities, Z12.12 - Encounter for screening for malignant neoplasm of rectum Medications: Changed From fluticasone furoate 200 mcg/actuation (Arnuity Ellipta) 1 inh inhalation DAILY To fluticasone furoate 200 mcg/actuation (Arnuity Ellipta) 1 inh inhalation DAILY 30 days 30 ea 1RF From blood sugar diagnostic (FreeStyle Lite Strips) As directed 10 ea diabetes mellitus E11.21 - Type 2 diabetes mellitus with diabetic nephropathy To blood sugar diagnostic (FreeStyle Lite Strips) Use 1 test strip once a day 100 ea 3RF diabetes mellitus E11.21 - Type 2 diabetes mellitus with diabetic nephropathy From lancets (FreeStyle Lancets) As directed 100 ea diabetes mellitus E11.21 - Type 2 diabetes mellitus with diabetic nephropathy To lancets (FreeStyle Lancets) Use 1 lancet once a day 100 ea 3RF diabetes mellitus E11.21 - Type 2 diabetes mellitus with diabetic nephropathy Refilled acetaminophen 500 mg PO TID PRN 90 tabs 1RF fever or pain 30 days aspirin 81 mg PO DAILY 90 tabs 1RF 90 days levothyroxine 75 mcg PO DAILY 90 tabs 1RF 90 days metformin 1,000 mg PO BID 180 tabs 1RF 90 days Ventolin HFA 90 mcg/actuation (albuterol sulfate) 2 puffs inhalation Q6H PRN 18 grams 2RF shortness of breath or wheezing 30 days NS atorvastatin 40 mg PO BEDTIME 90 tabs 1RF 90 days calcium carbonate-vitamin D3 600 mg-5 mcg (200 unit) (Calcium 600 + D(3)) 1 tab PO BID 180 tabs 1RF 90 days docusate sodium 100 mg PO BEDTIME 90 caps 3RF K59.00 - Constipation, unspecified fluticasone furoate 200 mcg/actuation (Arnuity Ellipta) 1 inh inhalation DAILY 30 ea 1RF 30 days glipizide ER 10 mg PO DAILY 90 tabs 1RF 90 days E11.9 - Type 2 diabetes mellitus without complications linagliptin (Tradjenta) 5 mg PO DAILY 90 tabs 0RF 90 days E11.9 - Type 2 diabetes mellitus without complications lisinopril Take 2 tablets AM and 1 tablet PM 30 mg (3 x 10 mg) PO DAILY 90 tabs 6RF 30 days Patient Instructions: - Monitor blood sugar levels regularly and maintain a log. - Follow a low-carbohydrate diet to help manage diabetes. - Continue current medications as prescribed. - Schedule follow-up lab tests in four months to re-evaluate anemia and proteinuria. - Contact the office if there are any questions regarding glucose monitoring or prescription refills. - Consider future colonoscopy screening when ready. - Maintain regular follow-ups for hypertension and hyperlipidemia management.
[2024-05-04 10:09] VITALS: BP 132/62; PULSE 85; O2SAT 96; BMI 31.8
--- OUTSIDE RECORDS SUMMARY | 2024-05-04 11:31 | XMS_ITS | Clinical Summary ---
Author Organization [facility] Address [address] [place] [address] Phone Care Team Providers Care It Senior Analyst Name Role Phone Silvia Wright MD Primary Care Provider [phone] Allergies No known active allergies Medications Acetaminophen [...] Most Recently Relevant to Health Maintenance Insurance [facility] ([id number]) [facility] ([id number]) Care Teams It Senior Analyst Relationship Specialty Start Date End Date Silvia Wright MD [address] [place] [address] PCP - General Internal Medicine 06/20/21
== END 2024-05-04 10:37 | disposition home or self-care (01) ==
PROVIDERS: PCP Internal Medicine; Visit Provider Internal Medicine
DX: E11.21 Type 2 diabetes mellitus with diabetic nephropathy (principal); E11.40 Type 2 diabetes mellitus with diabetic neuropathy, unspecified; R77.8 Other specified abnormalities of plasma proteins; J45.40 Moderate persistent asthma, uncomplicated; E03.9 Hypothyroidism, unspecified; E78.00 Pure hypercholesterolemia, unspecified; I10 Essential (primary) hypertension; Z13.9 Encounter for screening, unspecified

== ENCOUNTER → 2024-05-04 09:49 | Outpatient (BNVA) | payer OTHER, SELFPAY | PROVIDERS: PCP Internal Medicine; Visit Provider Internal Medicine | DX: E11.21 Type 2 diabetes mellitus with diabetic nephropathy (principal); E11.40 Type 2 diabetes mellitus with diabetic neuropathy, unspecified; R77.8 Other specified abnormalities of plasma proteins; J45.40 Moderate persistent asthma, uncomplicated; E03.9 Hypothyroidism, unspecified; E78.00 Pure hypercholesterolemia, unspecified; I10 Essential (primary) hypertension | CPT/HCPCS: 83036; 96127; 99212 ==

== ENCOUNTER 2024-06-17 09:52 | Outpatient (AMB) | payer OTHER, SELFPAY ==
[2024-06-17 09:54] VITALS: BP 130/62; PULSE 92; O2SAT 95
--- NOTE | 2024-06-17 09:54 | HO.NEPHOV ---
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 Her blood sugar control is pretty good. She has H/O proteinuria. She has hypertension and is on lisinopril. She has no pedal edema. She denies any froth or foam in the urine. She does not have any hypercalcemia or back pain. She denies taking excessive nonsteroidal anti-inflammatories. She does not have any coronary artery disease, carotid stenosis, congestive heart failure, CVA, renal artery stenosis or peripheral arterial disease. She is compliant with her medications. She denies any epistaxis, recurrent sore throat, microscopic hematuria, photosensitivity, skin rashes, joint swelling or any history of autoimmune diseases. She feels well [facility] Medical History Postmenopausal Moderate persistent asthma Microalbuminuria Class 1 obesity with body mass index (BMI) of 31.0 to 31.9 in adult Hypothyroidism Pure hypercholesterolemia Diabetes mellitus Essential hypertension Surgical History H/O colonoscopy No pertinent past surgical history Family History Mother No problems noted. Father No problems noted. Social History Housing: House Alcohol intake: never Patient Tobacco Use Status: Former Tobacco user Tobacco use type: Cigarette e-Cigarette/Vaping Use: Never Used Second Hand Smoke Exposure: No service: No Current occupational status: disabled Cognitive needs: No Hearing needs: No Vision needs: Yes Review of Systems Const All systems reviewed & are unremarkable except as noted in HPI and below Physical Exam Vital Signs: Last Vital Signs Pulse 92 06/17/24 09:54 BP 130/62 06/17/24 09:54 Pulse Ox 95 06/17/24 09:54 Oxygen Delivery Method Room Air 06/17/24 09:54 Const General: comfortable and no acute distress Orientation/consciousness: patient oriented x3 HEENT Head: Yes normocephalic Mouth: Normal oral and palatal mucosa present Eyes EOM: EOMs intact bilaterally Neck Neck: Yes supple Resp Auscultation: clear to auscultation bilaterally Cardio Jugular venous distension: no JVD Rate: regular rate GI Palpation (GI): Soft to palpation Auscultation: normal bowel sounds General: Yes no CVA tenderness Back/Spine/Pelvis Back: no CVA tenderness Skin General skin exam: no rashes or lesions noted Neuro General: patient oriented x3 and moves all extremities Extrem General: Yes no pedal edema Results Reviewed Nephrology Results: Hgb 11.5 g/dl (12.0-16.0) L 04/29/24 WBC 11.3 X10*3/uL (4.8-10.8) H 04/29/24 Plt Count 416 X10*3/uL (160-400) H 04/29/24 Sodium 141 mmol/L (135-145) 04/29/24 Potassium 4.4 mmol/L (3.3-5.1) 04/29/24 Chloride 106 mmol/L (96-108) 04/29/24 Carbon Dioxide 27 mmol/L (22-29) 04/29/24 BUN 13 mg/dL (9-16) 04/29/24 Creatinine 0.60 mg/dL (0.5-1.4) 04/29/24 Calcium 9.6 mg/dL (8.4-10.2) 04/29/24 Urine Creatinine 72.94 mg/dL 04/29/24 Protein/Creatinin Ratio 0.34 (<0.2) H 02/09/24 Assessment & Plan Assessment & Plan (1) Diabetic nephropathy associated with type 2 diabetes mellitus: Code(s): E11.21 - Type 2 diabetes mellitus with diabetic nephropathy Category: Medical (2) Proteinuria: Code(s): R80.9 - Proteinuria, unspecified Category: Medical Qualifiers: Proteinuria type: other Qualified Code(s): R80.8 - Other proteinuria Plan Ms. 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 She is been on lisinopril which was increased to 40 mg a day( from today). We could consider switching her from Tradjenta to Jardiance. She maintains good hydration and avoids nonsteroidal anti-inflammatories. I ordered follow-up blood work and urine studies. There is no indication for any renal biopsy now. Answered all her and her grand sons questions. Follow-up appointment given. Orders: Orders Creatinine 4 Months E11.21 - Type 2 diabetes mellitus with diabetic nephropathy, R80.8 - Other proteinuria Blood Urea Nitrogen 4 Months E11.21 - Type 2 diabetes mellitus with diabetic nephropathy, R80.8 - Other proteinuria Protein Creatinine Ratio, Ur 4 Months E11.21 - Type 2 diabetes mellitus with diabetic nephropathy, R80.8 - Other proteinuria Electrolytes 4 Months E11.21 - Type 2 diabetes mellitus with diabetic nephropathy, R80.8 - Other proteinuria Medications: Changed From lisinopril Take 2 tablets AM and 1 tablet PM 30 mg (3 x 10 mg) PO DAILY 30 days 90 tabs 6RF To lisinopril Take 2 tablets AM and 2 tablet PM 20 mg PO BID 90 days 180 tabs 6RF Coding Level of Care Code Est Pt Level 4 (16469) Diagnoses Diabetic nephropathy associated with type 2 diabetes mellitus E11.21 Other proteinuria R80.8 Proteinuria type: other
--- OUTSIDE RECORDS SUMMARY | 2024-06-17 10:29 | XMS_ITS | Clinical Summary ---
Author Organization [facility] Address [address] [place] [address] Phone Care Team Providers Care Employment Consultant Name Role Phone Silvia Wright MD Primary Care Provider [phone] Allergies No known active allergies Medications Acetaminophen [...] Due Date Last Done Comments Pneumococcal Vaccine: 50+ Ye ars (1 of 2 - PCV) 1951 Diabetes: Hemoglobin A1C 07/04/2021 03/29/2021 Diabetes: Ophthalmology Exam 07/04/2021 Diabetes: Pedal Pulse Checked 07/04/2021 Diabetes: Sensory Foot Exam 07/04/2021 Diabetes: Visual Foot Exam 07/04/2021 Influenza Vaccine (Season Ended) 2024 Hepatitis B Vaccine Aged Out No longe [...] Most Recently Relevant to Health Maintenance Insurance [facility] ([id number]) [facility] ([id number]) Care Teams Employment Consultant Relationship Specialty Start Date End Date Silvia Wright MD [address] [place] [address] PCP - General Internal Medicine 06/20/21
== END 2024-06-17 10:17 | disposition home or self-care (01) ==
LOC: HO.HKA 09:52
PROVIDERS: PCP Internal Medicine; Visit Provider Internal Medicine Nephrology
DX: E11.21 Type 2 diabetes mellitus with diabetic nephropathy (principal); R80.8 Other proteinuria
CPT/HCPCS: 99214

== ENCOUNTER → 2024-06-17 09:52 | Outpatient (BNVA) | payer OTHER, SELFPAY | PROVIDERS: PCP Internal Medicine; Visit Provider Internal Medicine Nephrology | DX: E11.21 Type 2 diabetes mellitus with diabetic nephropathy (principal); R80.8 Other proteinuria | CPT/HCPCS: 99212 ==

== ENCOUNTER 2024-09-08 08:42 | Outpatient (REF) | payer OTHER, SELFPAY ==
--- OUTSIDE RECORDS SUMMARY | 2024-09-08 08:49 | XMS_ITS | Clinical Summary ---
Author Organization [facility] Address [address] [facility] [address] [place] [address] Phone Care Team Providers Care Causticiser Name Role Phone Silvia Wright MD Primary Care Provider [phone] Allergies No known active allergies Medications Acetaminophen [...] Ye ars (1 of 2 - PCV) 1964 Diabetes: Hemoglobin A1C 07/04/2021 03/29/2021 Diabetes: Ophthalmology [...] Most Recently Relevant to Health Maintenance Insurance [facility] ([id number]) [facility] ([id number]) Care Teams Causticiser Relationship Specialty Start Date End Date Silvia Wright MD [address] [place] [address] PCP - General Internal Medicine 06/20/21
--- OUTSIDE RECORDS SUMMARY | 2024-09-08 08:49 | XMS_ITS | Patient Health Record ---
[facility] Organization [facility] Address [address] [place] [id number] Care Team Providers Care Control Clerk Name Role Phone Jem Berrios Unavailable [phone] Reason For Referral No Information Plan Of Treatment No Information
== END 2024-09-08 08:43 | disposition home or self-care (01) ==
LOC: HO.MAMMO 08:42
PROVIDERS: PCP Internal Medicine; Visit Provider Internal Medicine
DX: Z12.31 Encounter for screening mammogram for malignant neoplasm of breast (principal)
CPT/HCPCS: 77063; 77067

== ENCOUNTER → 2024-09-08 09:00 | Outpatient (BNV) | payer OTHER, SELFPAY | PROVIDERS: PCP Internal Medicine; Visit Provider Internal Medicine | DX: Z12.31 Encounter for screening mammogram for malignant neoplasm of breast (principal) | CPT/HCPCS: 77063; 77067 ==

== ENCOUNTER 2024-10-04 09:02 | Outpatient (REF) | payer OTHER, SELFPAY ==
[2024-10-04 09:16] LABS: MANUAL DIFF FLAG NO
--- OUTSIDE RECORDS SUMMARY | 2024-10-04 09:26 | XMS_ITS | Patient Health Record ---
Author Organization [facility] Address [address] [place] [address] Care Team Providers Care Vice President Of Finance Name Role Phone Jem Berrios Unavailable [phone] Reason For Referral No Information Plan Of Treatment No Information
--- OUTSIDE RECORDS SUMMARY | 2024-10-04 09:26 | XMS_ITS | Clinical Summary ---
Author Organization [facility] Address [address] [facility] [address] [place] [address] Phone Care Team Providers Care Non Destructive Evaluation Specialist Name Role Phone Silvia Wright MD Primary Care Provider [phone] Allergies No known active allergies Medications Acetaminophen [...] Visual Foot Exam 07/04/2021 Influenza Vaccine (#1) 2024 Hepatitis B Vaccine Aged Out No [...] Most Recently Relevant to Health Maintenance Insurance [facility] ([id number]) [facility] ([id number]) Care Teams Non Destructive Evaluation Specialist Relationship Specialty Start Date End Date Silvia Wright MD [address] [place] [address] PCP - General Internal Medicine 06/20/21
[2024-10-04 09:39] LABS: Hematocrit 35.9 % (37.0-47.0); Hemoglobin 11.2 g/dl (12.0-16.0); Imm Gran Abs Auto 0.14 X10*3/uL (0.00-0.03); Imm Gran Pct Auto 1.3 % (0.0-0.4); Lymphocytes Absolute Auto 2.5 X10*3/uL (1.2-4.9); Mean Corpuscular HGB Conc 31.2 g/dl (31.0-35.0); Mean Corpuscular Hemoglobin 25.9 pg (27.0-33.0); Mean Corpuscular Volume 83.1 fL (80.0-98.0); NRBC Abs Auto 0.000 X10*3/uL (0.0-0.012); NRBC Pct Auto 0.0 /100WBC (0.0-0.2); Platelet Count 366 X10*3/uL (160-400); Red Blood Count 4.32 X10*6/uL (4.20-5.50); White Blood Count 10.6 X10*3/uL (4.8-10.8)
[2024-10-04 10:44] LABS: Alanine Aminotransferase 18 U/L (0-31); Albumin Level 4.5 g/dL (3.5-5.0); Alkaline Phosphatase 61 U/L (39-117); Anion Gap 12 (12-20); Aspartate Amino Transferase 23 U/L (5-31); Blood Urea Nitrogen 17 mg/dL (9-16); Calcium 9.3 mg/dL (8.4-10.2); Carbon Dioxide 27 mmol/L (22-29); Chloride 107 mmol/L (96-108); Cholesterol 101 mg/dL (<200); Estimated Glomerular Filt Rate > 60; HDL Cholesterol 41 mg/dL (>40); Iron 58 mcg/dL (30-160); Percent Iron Saturation 18 % (15-50); Potassium 4.3 mmol/L (3.3-5.1); Sodium 142 mmol/L (135-145); Total Iron Binding Capacity 323 mcg/dL (228-428); Total Protein 7.5 g/dL (6.5-8.0); Triglycerides 103 mg/dL (<150); Unsaturated Iron Binding 265 ug/dL
[2024-10-04 11:08] LABS: Folate 12.4 ng/mL (> or = 4.0); Vitamin B12 240 pg/mL (200-900)
[2024-10-04 12:00] LABS: Microalbum/Creatinine Ratio Ur 491.6 ug/mg cr (<30)
[2024-10-06 21:52] LABS: Prot Elec - Albumin 3.8 g/dL (3.8-4.8); Prot Elec - Alpha1 0.3 g/dL (0.2-0.3); Prot Elec - Alpha2 1.0 g/dL (0.5-0.9); Prot Elec - Beta 1 0.5 g/dL (0.4-0.6); Prot Elec - Beta 2 0.4 g/dL (0.2-0.5); Prot Elec - Gamma 1.0 g/dL (0.8-1.7); Prot Elec - Total Protein 7.0 g/dL (6.1-8.1)
== END 2024-10-04 09:03 | disposition home or self-care (01) ==
LOC: HO.LAB 09:02
PROVIDERS: PCP Internal Medicine; Visit Provider Internal Medicine
DX: E11.21 Type 2 diabetes mellitus with diabetic nephropathy (principal); E53.8 Deficiency of other specified B group vitamins; D64.9 Anemia, unspecified; E55.9 Vitamin D deficiency, unspecified; E78.5 Hyperlipidemia, unspecified; R80.9 Proteinuria, unspecified; R77.8 Other specified abnormalities of plasma proteins
CPT/HCPCS: 36415; 80053; 80061; 82043; 82306; 82570; 82607; 82746; 83540; 84165; 85025

== ENCOUNTER 2024-10-26 10:00 | Outpatient (AMB) | payer OTHER, SELFPAY ==
--- NOTE | 2024-10-26 10:12 | HO.NEPHOV_ITS ---
Vital Signs 10/26/24 10:17 Height 4 ft 9 in Weight 148 lb 2 oz BMI 32.1 BP 136/60 Blood Pressure Location Lt brachial Position Sitting Pulse 92 Pulse Source Pulse Oximeter Pulse Oximetry (%) 95 Oxygen Delivery Method Room Air Intake Visit Reasons: 4 MO FU-Conf Broke Beater Operator Required: Yes Broke Beater Operator Language: Stacker Straightener Services: Broke Beater Operator Offered & Declined ([facility] Broke Beater Operator services refused ) Accompanied by: Grand Child Allergies No Known Allergies (No Known Allergies*) Allergy (Verified 10/26/24 10:15) HPI Comments Details: Jennifer Danielson is a delightful 79-year-old female with longstanding diabetes. Her blood sugar control is pretty good. She has H/O proteinuria. She has hypertension and is on lisinopril. She has no pedal edema. She denies any froth or foam in the urine. She does not have any hypercalcemia or back pain. She denies taking excessive nonsteroidal anti-inflammatories. She does not have any coronary artery disease, carotid stenosis, congestive heart failure, CVA, renal artery stenosis or peripheral arterial disease. She is compliant with her medications. She denies any epistaxis, recurrent sore throat, microscopic hematuria, photosensitivity, skin rashes, joint swelling or any history of autoimmune diseases. She feels well [facility] Medical History Postmenopausal Moderate persistent asthma Microalbuminuria Class 1 obesity with body mass index (BMI) of 31.0 to 31.9 in adult Hypothyroidism Pure hypercholesterolemia Diabetes mellitus Essential hypertension Surgical History H/O colonoscopy No pertinent past surgical history Family History Mother No problems noted. Father No problems noted. Social History Housing: House Alcohol intake: never Patient Tobacco Use Status: Former Tobacco user Tobacco use type: Cigarette e-Cigarette/Vaping Use: Never Used Second Hand Smoke Exposure: No service: No Current occupational status: disabled Cognitive needs: No Hearing needs: No Vision needs: Yes Review of Systems Const All systems reviewed & are unremarkable except as noted in HPI and below Physical Exam Vital Signs: Last Vital Signs Pulse 92 10/26/24 10:17 BP 136/60 10/26/24 10:17 Pulse Ox 95 10/26/24 10:17 Oxygen Delivery Method Room Air 10/26/24 10:17 BMI result Body Mass Index 32.1 Const General: comfortable and no acute distress Orientation/consciousness: patient oriented x3 HEENT Head: Yes normocephalic Mouth: Normal oral and palatal mucosa present Eyes EOM: EOMs intact bilaterally Neck Neck: Yes supple Resp Auscultation: clear to auscultation bilaterally Cardio Jugular venous distension: no JVD Rate: regular rate GI Palpation (GI): Soft to palpation Auscultation: normal bowel sounds General: Yes no CVA tenderness Back/Spine/Pelvis Back: no CVA tenderness Skin General skin exam: no rashes or lesions noted Neuro General: patient oriented x3 and moves all extremities Extrem General: Yes no pedal edema Results Reviewed Nephrology Results: Hgb, (12.0-16.0) 11.2 g/dl L 10/04/24 WBC, (4.8-10.8) 10.6 X10*3/uL 10/04/24 Plt Count, (160-400) 366 X10*3/uL 10/04/24 Sodium, (135-145) 142 mmol/L 10/04/24 Potassium, (3.3-5.1) 4.3 mmol/L 10/04/24 Chloride, (96-108) 107 mmol/L 10/04/24 Carbon Dioxide, (22-29) 27 mmol/L 10/04/24 BUN, (9-16) 17 mg/dL H 10/04/24 Creatinine, (0.5-1.4) 0.64 mg/dL 10/04/24 Calcium, (8.4-10.2) 9.3 mg/dL 10/04/24 Urine Creatinine 65.90 mg/dL 10/04/24 Protein/Creatinin Ratio, (<0.2) 0.34 H 02/09/24 Assessment & Plan Assessment & Plan (1) Essential hypertension: Code(s): I10 - Essential (primary) hypertension Category: Medical (2) Diabetic nephropathy associated with type 2 diabetes mellitus: Code(s): E11.21 - Type 2 diabetes mellitus with diabetic nephropathy Category: Medical Plan Ms. 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 She is been on lisinopril which I plan to increase to 20 mg bid based on urine studies at next visit . We could consider switching her from Tradjenta to Jardiance. She maintains good hydration and avoids nonsteroidal anti- inflammatories. I ordered follow-up blood work and urine studies. There is no indication for any renal biopsy now. Answered all her and her grand daughter's questions. Follow-up appointment given Orders: Orders Protein Creatinine Ratio, Ur 5 Months E11.21 - Type 2 diabetes mellitus with diabetic nephropathy, I10 - Essential (primary) hypertension Blood Urea Nitrogen 5 Months E11.21 - Type 2 diabetes mellitus with diabetic nephropathy, I10 - Essential (primary) hypertension Creatinine 5 Months E11.21 - Type 2 diabetes mellitus with diabetic nephropathy, I10 - Essential (primary) hypertension Electrolytes 5 Months E11.21 - Type 2 diabetes mellitus with diabetic nephropathy, I10 - Essential (primary) hypertension Coding Level of Care Code Est Pt Level 4 (10775) Diagnoses Essential hypertension I10 Diabetic nephropathy associated with type 2 diabetes mellitus E11.
[2024-10-26 10:17] VITALS: BP 136/60; PULSE 92; O2SAT 95; BMI 32.1
--- OUTSIDE RECORDS SUMMARY | 2024-10-26 11:00 | XMS_ITS | Patient Health Record ---
Author Organization [facility] Address [address] [place] [address] Care Team Providers Care Supervisor In Circuit Testing Name Role Phone Jem Berrios Unavailable [phone] Reason For Referral No Information Plan Of Treatment No Information
--- OUTSIDE RECORDS SUMMARY | 2024-10-26 11:01 | XMS_ITS | Clinical Summary ---
Author Organization [facility] Address [address] [facility] [address] [place] [address] Phone Care Team Providers Care Digital Content Coordinator Name Role Phone Silvia Wright MD Primary Care Provider [phone] Allergies No known active allergies Medications Acetaminophen [...] Most Recently Relevant to Health Maintenance Insurance [facility] ([id number]) [facility] ([id number]) Care Teams Digital Content Coordinator Relationship Specialty Start Date End Date Silvia Wright MD [address] [place] [address] PCP - General Internal Medicine 06/20/21
== END 2024-10-26 10:27 | disposition home or self-care (01) ==
LOC: HO.HKA 10:00
PROVIDERS: PCP Internal Medicine; Visit Provider Internal Medicine Nephrology
DX: I10 Essential (primary) hypertension (principal); E11.21 Type 2 diabetes mellitus with diabetic nephropathy
CPT/HCPCS: 99214

== ENCOUNTER → 2024-10-26 10:00 | Outpatient (BNVA) | payer OTHER, SELFPAY | PROVIDERS: PCP Internal Medicine; Visit Provider Internal Medicine Nephrology | DX: E11.21 Type 2 diabetes mellitus with diabetic nephropathy (principal); I10 Essential (primary) hypertension | CPT/HCPCS: 99212 ==

== ENCOUNTER 2025-02-07 08:02 | Outpatient (REF) | payer OTHER, SELFPAY ==
[2025-02-07 09:10] LABS: Anion Gap 13 (12-20); Blood Urea Nitrogen 17 mg/dL (9-16); Carbon Dioxide 26 mmol/L (22-29); Chloride 107 mmol/L (96-108); Estimated Glomerular Filt Rate > 60; Potassium 4.4 mmol/L (3.3-5.1); Sodium 142 mmol/L (135-145)
[2025-02-07 09:18] LABS: Protein/Creatinine Ratio, Ur 1.61 (<0.2); Total Protein Urine Random 51 mg/dL (<12)
== END 2025-02-07 08:03 | disposition home or self-care (01) ==
LOC: HO.LAB 08:02
PROVIDERS: Internal Medicine Nephrology; Visit Provider Internal Medicine
DX: E11.21 Type 2 diabetes mellitus with diabetic nephropathy (principal); I10 Essential (primary) hypertension; R80.8 Other proteinuria
CPT/HCPCS: 36415; 80051; 82565; 82570; 84156; 84520

== ENCOUNTER 2025-02-14 10:47 | Outpatient (AMB) | payer OTHER, SELFPAY ==
--- NOTE | 2025-02-14 11:07 | MHC.PC.OV ---
Vital Signs 02/14/25 11:08 Height 4 ft 9 in Weight 147 lb 8 oz BMI 31.9 BP 122/66 Blood Pressure Location Lt brachial Position Sitting Pulse 84 Pulse Source Pulse Oximeter Temp 96.9 F Temp Source Temporal Artery Scan Pulse Oximetry (%) 97 Oxygen Delivery Method Room Air Intake Visit Reasons: DM Intake Note: Patient is here to follow up on DM. Photographic Spotter Required: No Church Organist: Present Accompanied by: Daughter Allergies No Known Allergies (No Known Allergies*) Allergy (Verified 02/14/25 11:19) Medication List - Last Reconciled 02/14/25 by Silvia Hernadez MD acetaminophen 500 mg PO TID PRN 30 days aspirin 81 mg PO DAILY 90 days atorvastatin 40 mg PO BEDTIME 90 days blood sugar diagnostic (FreeStyle Lite Strips) Use 1 test strip once a day blood-glucose meter (FreeStyle Lite Meter kit) As directed calcium carbonate-vitamin D3 600 mg-5 mcg (200 unit) (Calcium 600 + D(3)) 1 tab PO BID 90 days cane As directed docusate sodium 100 mg PO BEDTIME fluticasone furoate 200 mcg/actuation (Arnuity Ellipta) 1 inh inhalation DAILY 30 days glipizide ER 10 mg PO DAILY 90 days lancets (FreeStyle Lancets) Use 1 lancet once a day levothyroxine 75 mcg PO DAILY 90 days linagliptin (Tradjenta) 5 mg PO DAILY 90 days lisinopril 20 mg PO DAILY metformin 1,000 mg PO BID 90 days Ventolin HFA 90 mcg/actuation (albuterol sulfate) 2 puffs inhalation Q6H PRN 30 days NS Tobacco use date assessed: 02/14/25 Fall risk assessment: No Falls in past year Last assessed Fall Risk: 02/14/25 Dental Screening Dental Screen Date: 05/04/24 HPI HPI Comments History of Present Illness Details The patient is a 80 year old female presenting for a follow-up visit for diabetes mellitus. Her recent hemoglobin A1c was 7.7%, and her fasting blood glucose this morning was 106 mg/dL. Medications for her diabetes include glipizide, Tradjenta 5 mg, and metformin. The patient's past medical history is significant for hypertension, which is reportedly well-controlled, and hypercholesterolemia, which was controlled on her last labs. She also has a history of hypothyroidism with her last thyroid function test being normal, constipation, and asthma. She reports no known drug allergies. Her current medications include baby aspirin 81 mg, atorvastatin 40 mg, calcium with vitamin D, docusate, Arnuity Ellipta, glipizide, levothyroxine 75 mcg, Tradjenta 5 mg, lisinopril 20 mg, and metformin. For preventative care, she has received the influenza vaccination. [facility] Medical History (Updated 02/14/25 @ 12:26 by Silvia Hernadez MD) Diabetes mellitus Postmenopausal Moderate persistent asthma Microalbuminuria Class 1 obesity with body mass index (BMI) of 31.0 to 31.9 in adult Hypothyroidism Pure hypercholesterolemia Essential hypertension Surgical History H/O colonoscopy No pertinent past surgical history Family History Mother No problems noted. Father No problems noted. Social History Housing: House Alcohol intake: never Patient Tobacco Use Status: Former Tobacco user Tobacco use type: Cigarette e-Cigarette/Vaping Use: Never Used Second Hand Smoke Exposure: Yes service: No Current occupational status: disabled Cognitive needs: No Hearing needs: No Vision needs: Yes Questionnaire Thrive Questionnaire Date Thrive assessed: 05/04/24 CHARLES-7 AMB Questionnaire CHARLES-7 Date CHARLES - 7 assessed: 05/04/24 Source: Developed by Drs. Jem Cervantes, Aga Najera, Steven Johnston and colleagues, with an educational rojelio from [employer]. Review of Systems Const All systems reviewed & are unremarkable except as noted in HPI and below Card Denies chest pain at rest, Denies chest pain with activity, Denies edema, Denies irregular heart rhythm, Denies claudication, Denies dyspnea, Denies dyspnea on exertion, Denies orthopnea, Denies paroxysmal nocturnal dyspnea and Denies slow heart rate Resp Denies cough, Denies dyspnea and Denies dyspnea on exertion GI Denies abdominal pain, Denies change in bowel habits, Denies excessive flatus, Denies nausea and Denies vomiting Physical exam (Primary Care) Vital Signs: Last Vital Signs Temp 96.9 F 02/14/25 11:08 Pulse 84 02/14/25 11:08 BP 122/66 02/14/25 11:08 Pulse Ox 97 02/14/25 11:08 Oxygen Delivery Method Room Air 02/14/25 11:08 BMI result Body Mass Index 31.9 Tobacco/Smoking Status: Tobacco use Status Tobacco use date assessed 02/14/25 02/14/25 11:16 Patient Tobacco Use Status Former Tobacco user 02/14/25 11:16 Tobacco use type Cigarette 02/14/25 11:16 e-Cigarette/Vaping Use Never Used 02/14/25 11:16 Thrive Assessment: Date of Thrive Assessment Date Thrive assessed 05/04/24 02/14/25 11:16 Resp Effort & Inspection: normal respiratory effort Auscultation: clear to auscultation bilaterally Cardio Jugular venous distension: no JVD Rate: regular rate Rhythm: regular rhythm Heart sounds: S1 normal heart sound present and S2 normal heart sound present Extrem General: Yes full ROM Results AMB Hemoglobin A1c AMB Hemoglobin A1c 7.7 % Last Edit by GRAY Carreno on 02/14/25 11:20 Coding Level of Care Code Complex visit Add On G2211 Diagnoses Essential hypertension I10 Pure hypercholesterolemia E78.00 Type 2 diabetes mellitus without complication, without long-term current use of insulin E11.9 Diabetes mellitus type: type 2 Diabetes mellitus adjunct faculty for medical terminology insulin use: without adjunct faculty for medical terminology use Diabetes mellitus complication status: without complication Hypothyroidism E03.9 Time Spent (min) 22 Assessment & Plan Assessment & Plan (1) Essential hypertension: Code(s): I10 - Essential (primary) hypertension Category: Medical (2) Pure hypercholesterolemia: Code(s): E78.00 - Pure hypercholesterolemia, unspecified Category: Medical (3) Diabetes mellitus: Code(s): E11.9 - Type 2 diabetes mellitus without complications Category: Medical Qualifiers: Diabetes mellitus type: type 2 Diabetes mellitus [facility] insulin use: without [facility] use Diabetes mellitus complication status: without complication Qualified Code(s): E11.9 - Type 2 diabetes mellitus without complications (4) Hypothyroidism: Code(s): E03.9 - Hypothyroidism, unspecified Category: Medical Plan Plan 1. Diabetes Mellitus The patient's recent hemoglobin A1c was 7.7%, which is slightly above the target of 7.0%, but considered acceptable given her age and comorbidities. Home blood glucose monitoring showed a reading of 106 mg/dL this morning, which is a good result. Plan to repeat labs in 4 months, including a urine microalbumin to screen for proteinuria. 2. Hypercholesterolemia The patient's cholesterol was controlled on her last lab test. She will continue taking atorvastatin 40 mg. 3. Hypertension The patient's blood pressure is well-controlled. Will continue current management with lisinopril 20 mg. 4. Hypothyroidism Continue levothyroxine. Monitor TSH. Orders: Orders AMB Hemoglobin A1c Today E11.21 - Type 2 diabetes mellitus with diabetic nephropathy Medications: Refilled levothyroxine 75 mcg PO DAILY 90 tabs 1RF 90 days linagliptin (Tradjenta) 5 mg PO DAILY 90 tabs 0RF 90 days E11.9 - Type 2 diabetes mellitus without complications glipizide ER 10 mg PO DAILY 90 tabs 1RF 90 days E11.9 - Type 2 diabetes mellitus without complications aspirin 81 mg PO DAILY 90 tabs 1RF 90 days Ventolin HFA 90 mcg/actuation (albuterol sulfate) 2 puffs inhalation Q6H PRN 18 grams 2RF shortness of breath or wheezing 30 days NS
[2025-02-14 11:08] VITALS: BP 122/66; PULSE 84; TEMP 36.1; O2SAT 97; BMI 31.9
== END 2025-02-14 11:29 | disposition home or self-care (01) ==
LOC: HO.HMCH 10:47
PROVIDERS: PCP Internal Medicine; Visit Provider Internal Medicine
DX: I10 Essential (primary) hypertension (principal); E78.00 Pure hypercholesterolemia, unspecified; E03.9 Hypothyroidism, unspecified; E11.21 Type 2 diabetes mellitus with diabetic nephropathy

== ENCOUNTER → 2025-02-14 10:47 | Outpatient (BNVA) | payer OTHER, SELFPAY | PROVIDERS: PCP Internal Medicine; Visit Provider Internal Medicine | DX: E11.21 Type 2 diabetes mellitus with diabetic nephropathy (principal); I10 Essential (primary) hypertension; E78.00 Pure hypercholesterolemia, unspecified; E03.9 Hypothyroidism, unspecified; Z79.84 Long term (current) use of oral hypoglycemic drugs; Z79.899 Other long term (current) drug therapy | CPT/HCPCS: 83036; 99212 ==